=== PATIENT | male | born 1955 | race Caucasian/White ===

== ENCOUNTER → 2018-07-29 10:38 | Outpatient (CLI) | payer MEDICARE, SELFPAY ==
[2017-07-30 14:18] VITALS: BMI 31.6
[2018-07-29 12:03] LABS: AST(SGOT) 20 U/L (15-37); Alanine Aminotransfer ALT/SGPT 28 U/L (16-61); Albumin, Serum 3.4 g/dL (3.2-5.0); Alkaline Phosphatase 75 U/L (45-117); Bilirubin, Direct 0.21 mg/dL (0.00-0.30); Cholesterol 153 mg/dL (200); Globulin 3.7 g/dL (2.2-4.2); High Density Lipoprotein 39 mg/dL; Protein, Total 7.1 g/dL (6.4-8.2); Triglycerides 76 mg/dL; Very Low Density Lipoprotein 15 mg/dL (5-40)
== END ==
PROVIDERS: Family Provider Family Medicine; PCP Family Medicine; Referring Provider Internal Medicine Cardiovascular Disease; Visit Provider Internal Medicine Cardiovascular Disease
DX: E78.5 Hyperlipidemia, unspecified (principal)
CPT/HCPCS: 36415; 80061; 80076

== ENCOUNTER → 2018-08-15 06:45 | Outpatient (CLI) | payer MEDICARE, SELFPAY ==
[2018-07-31 14:33] VITALS: BMI 29.7
--- NOTE | 2018-08-15 10:19 | STRESSREP_ITS ---
Stress Test Report Date: 08/15/2018 Procedure: Pharmacologic stress nuclear imaging study Indications: Chest pain Consent: Per the patient Procedure: The patient underwent pharmacologic (regadenoson) evaluation with a peak heart rate of 105 beats per minute (67% predicted maximal heart rate) with a peak blood pressure 170/90 mmHg. The baseline ECG demonstrated normal sinus rhythm with of right bundle branch block pattern. The peak pharmacological ECG demonstrated no obvious ECG changes. There were no cardiac dysrhythmias pretest, during pharmacologic infusion, or recovery. There was no report of chest discomfort during pharmacologic infusion or recovery. The examination was discontinued secondary to completion of protocol. Impression: 1. Pharmacologic (regadenoson) evaluation 2. Peak pharmacologic ECG with no obvious ECG changes 3. Nuclear images pending Myocardial perfusion imaging study: Technique: The patient was injected with 11.4 mci of technetium-99m Cardiolite and subsequently rest SPECT Cardiolite nuclear imaging was obtained in the horizontal long, vertical long, and short axis views. The patient underwent pharmacologic (regadenoson (evaluation with a peak heart rate of 105 beats per minute (67% predicted maximal heart rate) with a peak blood pressure 170/90 mmHg. The patient was injected with 33.8 mci of technetium-99m Cardiolite and subsequently stress SPECT Cardiolite nuclear imaging was obtained in the horizontal long, vertical long, and short axis views. A gated Cardiolite study at peak stress was obtained. Interpretation: Rest and stress SPECT Cardiolite nuclear imaging status post realignment, normalization, and attenuation correction,Demonstrates the appearance at rest of extra cardiac/gastrointestinal tracer uptake which appears less prominent following stress. Both at rest and stress there is a small area of subtle diminished tracer uptake in portions of the distal inferior/inferoapical segm ents. Status post stress this appears to be somewhat more prominent in portions of the mid anterior segments. There is end systolic thickening and brightening.The gated Cardiolite study demonstrates myocardial thickening and word wall motion. The reported LVEF is 67%. Impression: 1. Rest and stress SPECT currently nuclear imaging demonstrate myocardial perfusion changes potentially compensable the effects of shifting soft tissue attenuation/artifact and or physiologic apical thinning, however, an area myocardial ischemia in portions of the mid anterior segments cannot necessarily be excluded. 2. The gated Cardiolite study reports an LVEF of 67%. This note was generated using a voice recognition system and there may be incorrect words, spelling or punctuation that were not noted when reviewing the office note prior to saving.
== END ==
PROVIDERS: Family Provider Family Medicine; PCP Family Medicine; Referring Provider Internal Medicine Cardiovascular Disease; Visit Provider Internal Medicine Cardiovascular Disease
DX: R07.9 Chest pain, unspecified (principal)
CPT/HCPCS: 78452; 93017; A9500; A4216; J2785

== ENCOUNTER 2018-09-10 07:59 | Day surgery (SDC) | payer MEDICARE, SELFPAY ==
[2018-07-31 14:33] VITALS: BMI 29.7
[2018-08-22 13:39] VITALS: BMI 29.7
--- NOTE | 2018-08-22 13:46 | RAD_ITS ---
STUDY: X-RAY CHEST REASON FOR EXAM: Male, 63 years old. Preop for heart catheterization TECHNIQUE: PA and lateral views of the chest. COMPARISON: None. FINDINGS: The lungs are clear and expanded. There is no demonstrated pleural abnormality. Normal size heart. Normal mediastinum and nguyễn. Normal visualized pulmonary arteries. Normal visualized aortic arch and descending thoracic aorta. Normal visualized thoracic spine. Normal visualized ribs, clavicles, and shoulders. There is no demonstrated abnormality of the visualized soft tissue structures of the upper abdomen. RAD/Chest PA and Lateral IMPRESSION: Normal x-ray examination of the chest. Electronically Signed: James Love MD at 12:21 EST , Service support ,
[2018-08-22 14:44] LABS: Hematocrit 43.2 % (40-54); Hemoglobin 14.7 g/dl (13.0-16.5); Mean Corpuscular Hgb 30.2 pg (27.0-32.0); Mean Corpuscular Volume 88.7 fL (80-94); Mean Platelet Vol. 9.5 fl (6.2-12.0); Platelet Count 171 K/mm3 (150-450); RBC Distribution Width CV 12.9 % (11.6-14.6); RBC Distribution Width SD 41.8 fl (35.1-43.9); Red Blood Count 4.87 M/mm3 (4.6-6.2); White Blood Count 7.1 K/mm3 (4.4-11.0)
[2018-08-22 14:47] LABS: Scan Indicated on CBC? Y/N NO
[2018-08-22 15:01] LABS: Prothrombin Time (Protime)PT. 13.4 SECONDS (11.7-14.9)
[2018-08-22 15:02] LABS: Partial Thromboplast Time 33.2 Seconds (24.1-36.2)
[2018-08-22 15:05] LABS: Anion Gap 9 (5-15); BUN 12 mg/dL (7-18); BUN/Creat Ratio 10.9 RATIO (10-20); Calcium,Total 8.9 mg/dL (8.5-10.1); Chloride 108 mmol/L (98-107); EST Glomerular Filtration Rate 72 mL/min (>60); Est Glom Filt Rate - Afr Amer 87 mL/min (>60); Glucose 112 mg/dL (74-106); Potassium 3.9 mmol/L (3.5-5.1); Sodium Level 143 mmol/L (136-145)
[2018-09-09 07:46] VITALS: BMI 29.7
--- NOTE | 2018-09-10 08:25 | PCM.HP.BLA ---
History and Physical Date of Admission: 09/10/18 HPI HPI Details: ALEX PENA, is a 63 M who presents to the cardiac catheterization lab today for a cardiovascular outpatient follow-up. He has a history of syncope, right bundle branch block, hypertension, and hyperlipidemia. During his office visit on 07/31/2018 patient expressed vague chest pain. He underwent a nuclear stress test on 08/15/2018 which showed peak ECG with no obvious ECG changes and nuclear images showing that an area of myocardial ischemia in portions of the mid anterior segments could not necessarily be excluded with an ejection fraction of 67%. Because of this, he will undergo a left heart catheterization for further evaluation. He continues to have vague chest pain. Pt denies arm, jaw, or neck discomfort. His exercise tolerance is stable. Pt denies symptoms of palpitations, lightheadedness, dizziness, near syncopal or syncopal episodes. Pt denies edema or claudication issues. Pt. denies orthopnea, PND, fever, chills, blood in urine, blood in stool, myalgia, or unexplainable fatigue. He states intermittent episodes of shortness of breath. Intake Intake Visit Reasons: Amb Documentation Allergies clonidine Allergy (Intermediate, Verified 09/09/18 07:49) Hives latex Allergy (Intermediate, Verified 09/09/18 07:49) Hives neomycin [From Neosporin ([id number])] Allergy (Intermediate, Verified 09/09/18 07:49) Hives polymyxin B [From Neosporin ([id number])] Allergy (Intermediate, Verified 09/09/18 07:49) Hives carvedilol [From Coreg] Adverse Reaction (Severe, Verified 09/09/18 07:49) Suicidal Ideation lisinopril Adverse Reaction (Severe, Verified 09/09/18 07:49) dizziness,syncope,visual disturbance losartan Adverse Reaction (Severe, Verified 09/09/18 07:49) Visual Disturbances bacitracin Adverse Reaction (Intermediate, Verified 09/09/18 07:49) hives barium iodide Adverse Reaction (Intermediate, Verified 09/09/18 07:49) Vomiting hydrochlorothiazide Adverse Reaction (Verified 09/09/18 07:49) Unknown metoprolol succinate Adverse Reaction (Severe, Uncoded 09/09/18 07:49) dizziness/passed out Medications omeprazole 40 mg capsule,delayed release 40 mg PO QDAY 07/26/17 [History Confirmed 09/09/18] vitamin A palmitate 10,000 unit tablet 10,000 unit PO QDAY 07/26/17 [History Confirmed 09/09/18] antiarthritic combination no.2 900 mg tablet 900 mg PO DAILY tab 07/31/18 [History Confirmed 09/09/18] aspirin 81 mg tablet,delayed release 81 mg PO DAILY 08/16/18 [History Confirmed 09/09/18] amlodipine 5 mg tablet 5 mg PO QDAY #90 tab 08/22/18 [Rx Confirmed 09/09/18] atenolol 25 mg tablet 25 mg PO DAILY #90 tab 08/22/18 [Rx Confirmed 09/09/18] clopidogrel 75 mg tablet 75 mg PO DAILY #30 tab 08/22/18 [Rx Confirmed 09/09/18] diphenhydramine 25 mg capsule 50 mg PO .COMPLEX #4 cap 08/22/18 [Rx Confirmed 09/09/18] prednisone 20 mg tablet 60 mg PO .COMPLEX #9 tab 08/22/18 [Rx Confirmed 09/09/18] ranitidine 150 mg tablet 150 mg PO .COMPLEX #2 tab 08/22/18 [Rx Confirmed 09/09/18] Vital Signs: Please refer to separate documentation in the EMR for vital signs. PFSH Medical History Essential hypertension (Chronic) Cardiomyopathy in diseases classified elsewhere (Chronic) Chest discomfort (Acute) Hyperlipidemia (Chronic) Family history of stroke (Chronic) GERD (gastroesophageal reflux disease) (Chronic) Legally blind (Chronic) Retinitis pigmentosa (Chronic) Hypertension (Inactive) Surgical History History of appendectomy (Resolved) Family History Mother CAD (coronary artery disease) Heart disease CVA (cerebral vascular accident) Hypertension Father Hypertension Brother CVA (cerebral vascular accident) Sister Myocardial infarction CAD (coronary artery disease) Hypertension Daughter Diabetes Social History Smoking Status: Never smoker ROS Const Const: Negative for fatigue, weakness, weight gain, weight loss, frequent falls or excessive sweating Eyes Eyes: Negative for change in vision, blurry vision or transient loss of vision ENT ENT: Negative for dizziness or balance problems Cardio Chest Pain: Yes Character: dull Onset: at rest, exercise Location: mid sternal Duration: brief Palpitations: No Edema: Bilateral (occasional) Muscle aches with walking: None Additional Details: Patient reports that he continues with a dull intermittent CP; Just enough to let u know it is there. Patient reports that at times it feels the same as previously reported. Resp Respiratory: Positive for SOB with activity; negative for SOB at rest, SOB orthopnea\SOB lying down or paroxysmal nocturnal dyspnea GI GI: Negative vomiting or vomiting blood/hematemesis : Negative for hematuria Musc Musc: Negative for balance problems or muscle aches/ myalgia Skin Skin: Negative non-healing lesions or rash Neuro Neuro: Negative for weakness, frequent falls, blurry vision, dizziness, lightheadedness, near syncope or syncope Iraj Hematologic/Lymphatic: Negative for easy bleeding Endo Endo: Negative for fatigue or excessive sweating Psych Psych: Negative for anxiety or depression Allergy Allergy/Immunology: Negative for rash Cardiology Exam Const Appearance: cooperative, well developed, healthy appearing, comfortable and no acute distress Nutritional Appearance: average body habitus and obese Orientation: alert, awake and oriented x3 Head Head: normal to inspection Ears: hearing grossly normal bilaterally Nose: external nose normal Face and Sinus: face symmetric Mouth: oral mucosae normal Teeth and gingiva: poor dentition and fair dentition Eyes Eyelids: eyelids normal Pupils: PERRL EOM: EOM intact bilaterally Neck Neck: normal visual inspection and full ROM Carotids: normal carotid upstroke Chest Chest inspection: normal inspection of the chest, symmetric chest movement and normal respiratory effort Auscultation: Bilateral: Clear to Auscultation Cardio Palpation: normal PMI Rate: regular rate Rhythm: regular rhythm Heart sounds: S1 normal and S2 normal GI GI: obese and normal to inspection Neuro General: alert, awake, oriented x3 and moves all extremities Skin Skin: no rashes or lesions noted Extremities Pulses: Normal: Right Posterior Tibial Pulse, Left Posterior Tibial Pulse, Right Radial Pulse, Left Radial Pulse Lower Extremity Edema: None: Bilateral Psych Psychological: normal affect Assessment & Plan 1. Chest discomfort R07.89 Plan He states having continual off and on chest pain. He states his last episode yesterday lasted for about 10 minutes and occurred at rest. His heart catheterization will help discern if cardiac in etiology. 2. Abnormal stress test R94.39 Plan Patient stress test from July 2018 was considered to be abnormal. He will undergo a left heart catheterization for further evaluation and recommendation. 3. Syncope and collapse R55 Plan He denies any recurrent episodes. His heart rate and blood pressure remains well controlled. He will continue the current medications and we will continue to monitor. 4. Essential (primary) hypertension I10 Plan Patient's blood pressure is well-controlled. We will continue to monitor this. We will not make any medication regimen changes. 5. Hyperlipidemia, unspecified hyperlipidemia type E78.5 Plan Lipid panel from July 2018 showed cholesterol: 153, HDL: 39, LDL: 99, triglycerides: 76. He is not on any cholesterol lowering medication. Depending on his overall course regarding his left heart catheterization this may be considered. Plan Detail Additional Comments Thank you for allowing us to participate in the patients plan of care, if you have any questions please do not hesitate to call. This note was generated using a voice recognition system and there may be incorrect words, spelling or punctuation that were not noted when reviewing the office note prior to saving. Coding Diagnoses Chest discomfort R07.89 Abnormal stress test R94.39 Syncope and collapse R55 Essential (primary) hypertension I10 Hyperlipidemia, unspecified hyperlipidemia type E78.5 Hyperlipidemia type: unspecified Coding Diagnoses Chest discomfort R07.89 Abnormal stress test R94.39 Syncope and collapse R55 Essential (primary) hypertension I10 Hyperlipidemia, unspecified hyperlipidemia type E78.5 Hyperlipidemia type: unspecified Supplemental Info Supplemental Information Nuclear stress test 07/21/2018: Impression: 1. Pharmacologic (regadenoson) evaluation 2. Peak pharmacologic ECG with no obvious ECG changes 3. Nuclear images pending Myocardial perfusion imaging study: Technique: The patient was injected with 11.4 mci of technetium-99m Cardiolite and subsequently rest SPECT Cardiolite nuclear imaging was obtained in the horizontal long, vertical long, and short axis views. The patient underwent pharmacologic (regadenoson (evaluation with a peak heart rate of 105 beats per minute (67% predicted maximal heart rate) with a peak blood pressure 170/90 mmHg. The patient was injected with 33.8 mci of technetium-99m Cardiolite and subsequently stress SPECT Cardiolite nuclear imaging was obtained in the horizontal long, vertical long, and short axis views. A gated Cardiolite study at peak stress was obtained. Interpretation: Rest and stress SPECT Cardiolite nuclear imaging status post realignment, normalization, and attenuation correction,Demonstrates the appearance at rest of extra cardiac/gastrointestinal tracer uptake which appears less prominent following stress. Both at rest and stress there is a small area of subtle diminished tracer uptake in portions of the distal inferior/inferoapical segments. Status post stress this appears to be somewhat more prominent in portions of the mid anterior segments. There is end systolic thickening and brightening.The gated Cardiolite study demonstrates myocardial thickening and word wall motion. The reported LVEF is 67%. Impression: 1. Rest and stress SPECT currently nuclear imaging demonstrate myocardial perfusion changes potentially compensable the effects of shifting soft tissue attenuation/artifact and or physiologic apical thinning, however, an area myocardial ischemia in portions of the mid anterior segments cannot necessarily be excluded. 2. The gated Cardiolite study reports an LVEF of 67%. Holter monitor from July 2017: Normal sinus rhythm with bundle branch block, average heart rate of 65 beat bpm, minimum heart rate of 35 bpm of sinus bradycardia, maximum heart rate 114 bpm and sinus rhythm, rare PVCs, no runs noted, rare PACs, no atrial fibrillation noted, and longest R to R interval of 2 seconds. Echocardiogram from 07/25/2012: Ventricular systolic function is normal estimate ejection fraction is 55% trivial mitral valve insufficiency trivial tricuspid valve insufficiency trivial pulmonic valve insufficiency transmitral Doppler flow suggestive of impaired relaxation of left ventricle. Labs LDL Cholesterol 99 mg/dL (0-130) 07/29/18 HDL Cholesterol 39 mg/dL (40-) L 07/29/18 Triglycerides 76 mg/dL (-199) 07/29/18 VLDL Cholesterol 15 mg/dL (5-40) 07/29/18 Diagnostics Electrocardiogram 07/31/18 Stress Test Nuclear Medicine 08/15/18 Stress Test 08/15/18 Chest X-Ray 08/22/18
--- NOTE | 2018-09-10 10:06 | CL.D_ITS ---
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 The risks and benefits of the procedure as well as a full d escription of our services here and current unavailability of surgical backup were fully explained to the patient and/or their significant other prior to the catheterization. The Timeout was completed, verifying the correct patient and procedure. The patient's procedural site was prepped and draped in the usual fashion. Local anesthetic was given subcutaneously to right groin region with Lidocaine 2%. Using a modified Seldinger technique, arterial access was obtained via the right femoral artery, a 4 Fr sheath was inserted Left Coronary Artery selective angiography was performed in multiple views us ing a 4 Fr. JL5 catheter. Right Coronary Artery selective angiography was then performed in multiple views using a 4 Fr. 3DRC catheter. Left Ventriculography was performed in KERNS projection using a 4 Fr . Pigtail catheter. LV to AO pullback pressures were then recorded.The arterial sheath was pulled and manual compression applied until hemostasis is achieved. CORONARY ANGIOGRAPHY DOMINANCE: Right Dominant LEFT HEART ASSESSMENT Left Ventricular Ejection Fraction: by LV Gram 65 % Normal LV wall motion Elevated Left Ventricular End Diastolic Pressure LVEDP: 16 mmHg LEFT MAIN: Angiographically normal LEFT ANTERIOR DECENDING ARTERY: Angiographically normal CIRCUMFLEX ARTERY: PROX CIRC: Mild luminal irregularities RIGHT CORONARY ARTERY: PROX RCA: Mild luminal irregularities VALVE FINDINGS: Normal Aortic Valve function Normal Mitral Valve function AORTIC ROOT: Angiographically normal COMPLICATIONS No Complications PROCEDURE MEDICATIONS Versed 1 mg IV Oxygen: 2 L/min via nasal cannula Solu-medrol 125 mg IV 09/10/2018 09:26:44 SUMMARY OF HEMODYNAMIC DATA Time AIR REST ECG 08:22:03 AO 130/80 (103) SA 09:39:46 LV 130/-6, 16 09:46:38 LV 133/-8, 13 09:46:44 LV 127/-3, 17 09:47:31 LVp 128/-7, 14 09:47:37 AOp 127/69 (94) 09:47:42 10:04:02 Signed By Eamon Ponce MD On 09/10/2018 10:06:25 Eamon Ponce MD
--- OUTSIDE RECORDS SUMMARY | 2018-11-12 08:03 | XMS RPT_ITS ---
:1955 Author Organization OHIP Care Team Providers Name Role Phone Eamon Ponce Attending Unavailable Tiff Garrett Referring Unavailable Eamon Ponce Attending Unavailable Eamon Ponce Referring Unavailable Tami, Tiff Primary Care Unavailable Eamon Ponce Attending Unavailable Tami Tiff Referring Unavailable Eamon Ponce Attending Unavailable Eamon Ponce Referring Unavailable Tami, Tiff Primary Care Unavailable Eamon Ponce Attending Unavailable Eamon Ponce Referring Unavailable Sushant Spence Attending Unavailable Eamon Ponce Attending Unavailable Eamon Ponce Referring Unavailable Tami, Tiff Primary Care Unavailable Sushant Spence Attending Unavailable [place], Eamon Referring Unavailable Tiff Garrett Primary Care Unavailable Eamon Ponce Consulting Unavailable PROBLEMS PROBLEMS DATE TYPE CONDITION / CODE ATTENDING STATUS SOURCE 09/10/2018 Unknown R07.89 - Other chest Eamon Ponce Active [place] pain / Community R07.89(ICD-10) Hospital Repository 09/10/2018 Unknown R94.39 - Abnormal Eamon Ponce Active [place] result of other [facility] cardiovascular Hospital function study / Repository R94.39(ICD-10) 09/03/2018 Unknown R07.9 - Chest pain, Eamon Ponce Active [place] unspecified / Community R07.9(ICD-10) Hospital Repository 07/31/2018 Unknown I10 - Essential Eamon Ponce Active [place] (primary) Community hypertension / Hospital I10(ICD-10) Repository 07/31/2018 Unknown I43 - Cardiomyopathy Eamon Ponce Active [place] in diseases Community classified elsewhere Hospital / I43(ICD-10) Repository PROCEDURES PROCEDURES No Procedure Records FoundRESULTS RESULTS CBC-COMPLETE BLOOD CNT Collected: 09/10/2018 Status: F Source: [place] NO DIFF 9:30 AM [facility] [place] CODE TESTS RESULT OUT OF RANGE REFERENCE UNITS LAB L100.1000 4.4-11.0 K/mm3 Normal WBC 7.1 LAB L100.1200 4.6-6.2 M/mm3 Normal RBC 4.87 LAB L100.1300 13.0-16.5 g/dl Normal HGB 14.7 LAB L100.1400 40-54 % Normal HCT 43.2 LAB L100.1500 80-94 fL Normal MCV 88.7 LAB L100.1600 27.0-32.0 pg Normal MCH 30.2 LAB L100.1700 32-36 g/gl Normal MCHC 34.0 LAB L100.1810 11.6-14.6 % Normal RDW CV 12.9 LAB L100.1820 35.1-43.9 fl Normal RDW SD 41.8 LAB L100.1900 150-450 K/mm3 Normal PLT 171 LAB L100.2000 6.2-12.0 fl Normal MPV 9.5 Performed By: #### L100.0500 #### [facility] [address] [place], [address] BASIC METABOLIC Collected: 09/10/2018 Status: F Source: [place] PROFILE (BMP) 9:30 AM [facility] [place] CODE TESTS RESULT OUT OF RANGE REFERENCE UNITS LAB L501.0100 74-106 mg/dL High GLU 112 Result Comment: Fasting Glucose result from 100 to 125 mg/dL suggests IMPAIRED HOMEOSTASIS per A.D.A. criteria. Please note revised GLUCOSE reference range effective 2017. LAB L501.1000 7-18 mg/dL Normal BUN 12 LAB L501.1100 0.70-1.30 mg/dL Normal CREAT,SERUM 1.10 Result Comment: The validity of the calculated GFR AND GFRAA in patients over 70 years has not been determined. Clinical correlation is essential. LAB L501.1110 >60 mL/min Normal EST GFR 72 Result Comment: Non- GFR Calc LAB L501.1115 >60 mL/min Normal EST GFR - AA 87 Result Comment: GFR Calc LAB L501.1300 10-20 RATIO Normal BUN/CRE 10.9 LAB L501.2200 8.5-10.1 mg/dL CA Normal 8.9 LAB L501.5300 136-145 mmol/L NA Normal 143 LAB L501.5600 3.5-5.1 mmol/L K Normal 3.9 LAB L501.5900 98-107 mmol/L High CL 108 LAB L501.6100 21.0-32.0 mmol/L Normal CO2 26.0 LAB L501.6200 5-15 Normal GAP 9 Performed By: #### L500.2500 #### [facility] [address] [place], [address] PROTHROMBIN TIME W/INR Collected: 09/10/2018 Status: F Source: [place] 9:30 AM [facility] [place] CODE TESTS RESULT OUT OF RANGE REFERENCE UNITS LAB L300.4150 11.7-14.9 SECONDS Normal PROTIME 13.4 LAB L300.4200 Normal INR 1.0 Performed By: #### L300.3900, L300.4310 #### [facility] [address] [place], [address] PARTIAL THROMBOPLAST Collected: 09/10/2018 Status: F Source: [place] TIME 9:30 AM [facility] [place] CODE TESTS RESULT OUT OF RANGE REFERENCE UNITS LAB L300.4310 24.1-36.2 Seconds Normal PTT 33.2 Performed By: #### L300.3900, L300.4310 #### [facility] [address] [place], [address] HISTORY AND PHYSICAL Observed: 09/10/2018 Status: F Source: [place] EXAM 8:27 AM [facility] [place] [facility] Medical Records Department [address] [place] [address] History and Physical 09/10/18 0825 MR#: [id number] Acct: [id number] Name: ALEX PENA Rep #: [id number] : 1955 63 From: Sushant Spence [employer] PCP: Tiff Garrett MD Status: [facility] Y Location: [facility] History and Physical Date of Admission: 09/10/18 HPI HPI Details: ALEX PENA, is a 63 M who presents to the cardiac catheterization lab today for a cardiovascular outpatient follow-up. He has a history of syncope, right bundle branch block, hypertension, and hyperlipidemia. During his office visit on 07/31/2018 patient expressed vague chest pain. He underwent a nuclear stress test on 08/15/2018 which showed peak ECG with no obvious ECG changes and nuclear images showing that an area of myocardial ischemia in portions of the mid anterior segments could not necessarily be excluded with an ejection fraction of 67%. Because of this, he will undergo a left heart catheterization for further evaluation. He continues to have vague chest pain. Pt denies arm, jaw, or neck discomfort. His exercise tolerance is stable. Pt denies symptoms of palpitations, lightheadedness, dizziness, near syncopal or syncopal episodes. Pt denies edema or claudication issues. Pt. denies orthopnea, PND, fever, chills, blood in urine, blood in stool, myalgia, or unexplainable fatigue. He states intermittent episodes of shortness of breath. Intake Intake Visit Reasons: Amb Documentation Allergies clonidine Allergy (Intermediate, Verified 09/09/18 07:49) Hives latex Allergy (Intermediate, Verified 09/09/18 07:49) Hives neomycin [From Neosporin ([id number])] Allergy (Intermediate, Verified 09/09/18 07:49) Hives polymyxin B [From Neosporin ([id number])] Allergy (Intermediate, Verified 09/09/18 07:49) Hives carvedilol [From Coreg] Adverse Reaction (Severe, Verified 09/09/18 07:49) Suicidal Ideation lisinopril Adverse Reaction (Severe, Verified 09/09/18 07:49) dizziness,syncope,visual disturbance losartan Adverse Reaction (Severe, Verified 09/09/18 07:49) Visual Disturbances bacitracin Adverse Reaction (Intermediate, Verified 09/09/18 07:49) hives barium iodide Adverse Reaction (Intermediate, Verified 09/09/18 07:49) Vomiting hydrochlorothiazide Adverse Reaction (Verified 09/09/18 07:49) Unknown metoprolol succinate Adverse Reaction (Severe, Uncoded 09/09/18 07:49) dizziness/passed out Medications omeprazole 40 mg capsule,delayed release 40 mg PO QDAY 07/26/17 [History Confirmed 09/09/18] vitamin A palmitate 10,000 unit tablet 10,000 unit PO QDAY 07/26/17 [History Confirmed 09/09/18] antiarthritic combination no.2 900 mg tablet 900 mg PO DAILY tab 07/31/18 [History Confirmed 09/09/18] aspirin 81 mg tablet,delayed release 81 mg PO DAILY 08/16/18 [History Confirmed 09/09/18] amlodipine 5 mg tablet 5 mg PO QDAY #90 tab 08/22/18 [Rx Confirmed 09/09/18] atenolol 25 mg tablet 25 mg PO DAILY #90 tab 08/22/18 [Rx Confirmed 09/09/18] clopidogrel 75 mg tablet 75 mg PO DAILY #30 tab 08/22/18 [Rx Confirmed 09/09/18] diphenhydramine 25 mg capsule 50 mg PO .COMPLEX #4 cap 08/22/18 [Rx Confirmed 09/09/18] prednisone 20 mg tablet 60 mg PO .COMPLEX #9 tab 08/22/18 [Rx Confirmed 09/09/18] ranitidine 150 mg tablet 150 mg PO .COMPLEX #2 tab 08/22/18 [Rx Confirmed 09/09/18] Vital Signs: Please refer to separate documentation in the EMR for vital signs. PFSH Medical History Essential hypertension (Chronic) Cardiomyopathy in diseases classified elsewhere (Chronic) Chest discomfort (Acute) Hyperlipidemia (Chronic) Family history of stroke (Chronic) GERD (gastroesophageal reflux disease) (Chronic) Legally blind (Chronic) Retinitis pigmentosa (Chronic) Hypertension (Inactive) Surgical History History of appendectomy (Resolved) Family History Mother CAD (coronary artery disease) Heart disease CVA (cerebral vascular accident) Hypertension Father Hypertension Brother CVA (cerebral vascular accident) Sister Myocardial infarction CAD (coronary artery disease) Hypertension Daughter Diabetes Social History Smoking Status: Never smoker ROS Const Const: Negative for fatigue, weakness, weight gain, weight loss, frequent falls or excessive sweating Eyes Eyes: Negative for change in vision, blurry vision or transient loss of vision ENT ENT: Negative for dizziness or balance problems Cardio Chest Pain: Yes Character: dull Onset: at rest, exercise Location: mid sternal Duration: brief Palpitations: No Edema: Bilateral (occasional) Muscle aches with walking: None Additional Details: Patient reports that he continues with a dull intermittent CP; Just enough to let u know it is there. Patient reports that at times it feels the same as previously reported. Resp Respiratory: Positive for SOB with activity; negative for SOB at rest, SOB orthopnea\SOB lying down or paroxysmal nocturnal dyspnea GI GI: Negative vomiting or vomiting blood/hematemesis : Negative for hematuria Musc Musc: Negative for balance problems or muscle aches/ myalgia Skin Skin: Negative non-healing lesions or rash Neuro Neuro: Negative for weakness, frequent falls, blurry vision, dizziness, lightheadedness, near syncope or syncope Iraj Hematologic/Lymphatic: Negative for easy bleeding Endo Endo: Negative for fatigue or excessive sweating Psych Psych: Negative for anxiety or depression Allergy Allergy/Immunology: Negative for rash Cardiology Exam Const Appearance: cooperative, well developed, healthy appearing, comfortable and no acute distress Nutritional Appearance: average body habitus and obese Orientation: alert, awake and oriented x3 Head Head: normal to inspection Ears: hearing grossly normal bilaterally Nose: external nose normal Face and Sinus: face symmetric Mouth: oral mucosae normal Teeth and gingiva: poor dentition and fair dentition Eyes Eyelids: eyelids normal Pupils: PERRL EOM: EOM intact bilaterally Neck Neck: normal visual inspection and full ROM Carotids: normal carotid upstroke Chest Chest inspection: normal inspection of the chest, symmetric chest movement and normal respiratory effort Auscultation: Bilateral: Clear to Auscultation Cardio Palpation: normal PMI Rate: regular rate Rhythm: regular rhythm Heart sounds: S1 normal and S2 normal GI GI: obese and normal to inspection Neuro General: alert, awake, oriented x3 and moves all extremities Skin Skin: no rashes or lesions noted Extremities Pulses: Normal: Right Posterior Tibial Pulse, Left Posterior Tibial Pulse, Right Radial Pulse, Left Radial Pulse Lower Extremity Edema: None: Bilateral Psych Psychological: normal affect Assessment AND Plan 1. Chest discomfort R07.89 Plan He states having continual off and on chest pain. He states his last episode yesterday lasted for about 10 minutes and occurred at rest. His heart catheterization will help discern if cardiac in etiology. 2. Abnormal stress test R94.39 Plan Patient stress test from July 2018 was considered to be abnormal. He will undergo a left heart catheterization for further evaluation and recommendation. 3. Syncope and collapse R55 Plan He denies any recurrent episodes. His heart rate and blood pressure remains well controlled. He will continue the current medications and we will continue to monitor. 4. Essential (primary) hypertension I10 Plan Patient's blood pressure is well-controlled. We will continue to monitor this. We will not make any medication regimen changes. 5. Hyperlipidemia, unspecified hyperlipidemia type E78.5 Plan Lipid panel from July 2018 showed cholesterol: 153, HDL: 39, LDL: 99, triglycerides: 76. He is not on any cholesterol lowering medication. Depending on his overall course regarding his left heart catheterization this may be considered. Plan Detail Additional Comments Thank you for allowing us to participate in the patients plan of care, if you have any questions please do not hesitate to call. This note was generated using a voice recognition system and there may be incorrect words, spelling or punctuation that were not noted when reviewing the office note prior to saving. Coding Diagnoses Chest discomfort R07.89 Abnormal stress test R94.39 Syncope and collapse R55 Essential (primary) hypertension I10 Hyperlipidemia, unspecified hyperlipidemia type E78.5 Hyperlipidemia type: unspecified Coding Diagnoses Chest discomfort R07.89 Abnormal stress test R94.39 Syncope and collapse R55 Essential (primary) hypertension I10 Hyperlipidemia, unspecified hyperlipidemia type E78.5 Hyperlipidemia type: unspecified Supplemental Info Supplemental Information Nuclear stress test 07/21/2018: Impression: 1. Pharmacologic (regadenoson) evaluation 2. Peak pharmacologic ECG with no obvious ECG changes 3. Nuclear images pending Myocardial perfusion imaging study: Technique: The patient was injected with 11.4 mci of technetium-99m Cardiolite and subsequently rest SPECT Cardiolite nuclear imaging was obtained in the horizontal long, vertical long, and short axis views. The patient underwent pharmacologic (regadenoson (evaluation with a peak heart rate of 105 beats per minute (67% predicted maximal heart rate) with a peak blood pressure 170/90 mmHg. The patient was injected with 33.8 mci of technetium-99m Cardiolite and subsequently stress SPECT Cardiolite nuclear imaging was obtained in the horizontal long, vertical long, and short axis views. A gated Cardiolite study at peak stress was obtained. Interpretation: Rest and stress SPECT Cardiolite nuclear imaging status post realignment, normalization, and attenuation correction,Demonstrates the appearance at rest of extra cardiac/gastrointestinal tracer uptake which appears less prominent following stress. Both at rest and stress there is a small area of subtle diminished tracer uptake in portions of the distal inferior/inferoapical segments. Status post stress this appears to be somewhat more prominent in portions of the mid anterior segments. There is end systolic thickening and brightening.The gated Cardiolite study demonstrates myocardial thickening and word wall motion. The reported LVEF is 67%. Impression: 1. Rest and stress SPECT currently nuclear imaging demonstrate myocardial perfusion changes potentially compensable the effects of shifting soft tissue attenuation/artifact and or physiologic apical thinning, however, an area myocardial ischemia in portions of the mid anterior segments cannot necessarily be excluded. 2. The gated Cardiolite study reports an LVEF of 67%. Holter monitor from July 2017: Normal sinus rhythm with bundle branch block, average heart rate of 65 beat bpm, minimum heart rate of 35 bpm of sinus bradycardia, maximum heart rate 114 bpm and sinus rhythm, rare PVCs, no runs noted, rare PACs, no atrial fibrillation noted, and longest R to R interval of 2 seconds. Echocardiogram from 07/25/2012: Ventricular systolic function is normal estimate ejection fraction is 55% trivial mitral valve insufficiency trivial tricuspid valve insufficiency trivial pulmonic valve insufficiency transmitral Doppler flow suggestive of impaired relaxation of left ventricle. Labs LDL Cholesterol 99 mg/dL (0-130) 07/29/18 HDL Cholesterol 39 mg/dL (40-) L 07/29/18 Triglycerides 76 mg/dL (-199) 07/29/18 VLDL Cholesterol 15 mg/dL (5-40) 07/29/18 Diagnostics Electrocardiogram 07/31/18 Stress Test Nuclear Medicine 08/15/18 Stress Test 08/15/18 Chest X-Ray 08/22/18 09/10/18 0827 <Electronically signed by Sushant OLIVEIRA> Date Sushant OLIVEIRA Cosigner Signature: Date (if applicable) CC: ALONSO Spence; Tiff Garrett MD Signed OFFICE VISIT REPORT Observed: 08/22/2018 Status: F Source: [place] 8:[address] [place] [address] OFFICE VISIT Date of Service: 08/22/18 MR#: [id number] Acct: [id number] Patient: ALEX PENA Rep #: [id number] : 1955 Provider: Eamon Ponce MD Age/Sex: 63/M [place] [facility] [place]: Signed Intake Vital Signs08/22/18 Body Mass Index (BMI) 29.7 Intake Visit Reasons: cath teaching Allergies clonidine Allergy (Intermediate, Verified 07/31/18 14:33) Hives latex Allergy (Intermediate, Verified 07/31/18 14:33) Hives neomycin [From Neosporin ([id number])] Allergy (Intermediate, Verified 07/31/18 14:33) Hives polymyxin B [From Neosporin ([id number])] Allergy (Intermediate, Verified 07/31/18 14:33) Hives carvedilol [From Coreg] Adverse Reaction (Severe, Verified 07/31/18 14:33) Suicidal Ideation lisinopril Adverse Reaction (Severe, Verified 07/31/18 14:33) dizziness,syncope,visual disturbance losartan Adverse Reaction (Severe, Verified 07/31/18 14:33) Visual Disturbances bacitracin Adverse Reaction (Intermediate, Verified 07/31/18 14:33) hives barium iodide Adverse Reaction (Intermediate, Verified 07/31/18 14:33) Vomiting metoprolol succinate Adverse Reaction (Severe, Uncoded 07/31/18 14:33) dizziness/passed out Hydrochlorathiazide Adverse Reaction (Mild, Uncoded 07/31/18 14:33) Dry Throat Medications omeprazole 40 mg capsule,delayed release 40 mg PO QDAY 07/26/17 [History Confirmed 07/31/18] vitamin A palmitate 10,000 unit tablet 10,000 unit PO QDAY 07/26/17 [History Confirmed 07/31/18] antiarthritic combination no.2 900 mg tablet 900 mg PO DAILY tab 07/31/18 [History Confirmed 07/31/18] aspirin 81 mg tablet,delayed release 81 mg PO DAILY 08/16/18 [History Confirmed 08/16/18] amlodipine 5 mg tablet 5 mg PO QDAY #90 tab 08/22/18 [Rx Confirmed 08/22/18] atenolol 25 mg tablet 25 mg PO DAILY #90 tab 08/22/18 [Rx Confirmed 08/22/18] clopidogrel 75 mg tablet 75 mg PO DAILY #30 tab 08/22/18 [Rx] diphenhydramine 25 mg capsule 50 mg PO .COMPLEX #4 cap 08/22/18 [Rx] prednisone 20 mg tablet 60 mg PO .COMPLEX #9 tab 08/22/18 [Rx] ranitidine 150 mg tablet 150 mg PO .COMPLEX #2 tab 08/22/18 [Rx] Assessment AND Plan Medications New: Refilled: Discontinued: Nursing Note Patient in for cardiac cath teaching. Cath video viewed with questions answered. Reviewed cath booklet with verbal instruction given. Scripts sent to patient pharmacy. 08/22/181999 <Electronically signed by Eamon Ponce MD> Date Eamon Ponce MD Cosigner Signature: Date (if applicable) CC: Alexandra Weber CHEST PA AND LATERAL Observed: 08/22/2018 Status: F Source: [place] 1:43 PM [facility] HOSPITAL REPOSITORY [facility] Imaging Services [address] [place] [address] Chest PA and Lateral MR#: [id number] Acct: [id number] Name: ALEX PENA Rep #: [id number] : 1955 M 63 From: Pastor Love MD PCP: Tiff Garrett MD [place] [facility] [place] Chest PA and Lateral Date of Exam: 08/22/18 Exam# [id number] Ordering Dr: Eamon Ponce MD STUDY: X-RAY CHEST REASON FOR EXAM: Male, 63 years old. Preop for heart catheterization TECHNIQUE: PA and lateral views of the chest. COMPARISON: None. FINDINGS: The lungs are clear and expanded. There is no demonstrated pleural abnormality. Normal size heart. Normal mediastinum and nguyễn. Normal visualized pulmonary arteries. Normal visualized aortic arch and descending thoracic aorta. Normal visualized thoracic spine. Normal visualized ribs, clavicles, and shoulders. There is no demonstrated abnormality of the visualized soft tissue structures of the upper abdomen. RAD/Chest PA and Lateral IMPRESSION: Normal x-ray examination of the chest. Electronically Signed: James Love MD at 12:21 EST , Service support , CC: Tiff Garrett MD; Eamon Ponce MD Proof Inspector: Signed STRESS REPORT Observed: 08/15/2018 Status: F Source: [place] 10:20 AM [facility] H[facility] REPOSITORY [facility] Cardiovascular Services [address] [place] [address] MR#: [id number] Acct: [id number] Name: ALEX PENA Rep #: [id number] : 1955 63 From: Eamon Ponce MD Primary Care: Tiff Garrett MD Status: REG CLI Ordering Dr: Anamika: Gibran Longoria Stress Test Report Date: 08/15/2018 Procedure: Pharmacologic stress nuclear imaging study Indications: Chest pain Consent: Per the patient Procedure: The patient underwent pharmacologic (regadenoson) evaluation with a peak heart rate of 105 beats per minute (67% predicted maximal heart rate) with a peak blood pressure 170/90 mmHg. The baseline ECG demonstrated normal sinus rhythm with of right bundle branch block pattern. The peak pharmacological ECG demonstrated no obvious ECG changes. There were no cardiac dysrhythmias pretest, during pharmacologic infusion, or recovery. There was no report of chest discomfort during pharmacologic infusion or recovery. The examination was discontinued secondary to completion of protocol. Impression: 1. Pharmacologic (regadenoson) evaluation 2. Peak pharmacologic ECG with no obvious ECG changes 3. Nuclear images pending Myocardial perfusion imaging study: Technique: The patient was injected with 11.4 mci of technetium-99m Cardiolite and subsequently rest SPECT Cardiolite nuclear imaging was obtained in the horizontal long, vertical long, and short axis views. The patient underwent pharmacologic (regadenoson (evaluation with a peak heart rate of 105 beats per minute (67% predicted maximal heart rate) with a peak blood pressure 170/90 mmHg. The patient was injected with 33.8 mci of technetium-99m Cardiolite and subsequently stress SPECT Cardiolite nuclear imaging was obtained in the horizontal long, vertical long, and short axis views. A gated Cardiolite study at peak stress was obtained. Interpretation: Rest and stress SPECT Cardiolite nuclear imaging status post realignment, normalization, and attenuation correction,Demonstrates the appearance at rest of extra cardiac/gastrointestinal tracer uptake which appears less prominent following stress. Both at rest and stress there is a small area of subtle diminished tracer uptake in portions of the distal inferior/inferoapical segments. Status post stress this appears to be somewhat more prominent in portions of the mid anterior segments. There is end systolic thickening and brightening.The gated Cardiolite study demonstrates myocardial thickening and word wall motion. The reported LVEF is 67%. Impression: 1. Rest and stress SPECT currently nuclear imaging demonstrate myocardial perfusion changes potentially compensable the effects of shifting soft tissue attenuation/artifact and or physiologic apical thinning, however, an area myocardial ischemia in portions of the mid anterior segments cannot necessarily be excluded. 2. The gated Cardiolite study reports an LVEF of 67%. This note was generated using a voice recognition system and there may be incorrect words, spelling or punctuation that were not noted when reviewing the office note prior to saving. 08/15/18 1020 <Electronically signed by Eamon Ponce MD> Date Eamon Ponce MD CC: Tiff Garrett MD; Eamon Ponce MD Date Dictated: 08/15/18 1009 Date Transcribed: 08/15/18 100 Proof Inspector: PM Signed CARDIOLOGY VISIT Observed: 07/31/2018 Status: F Source: [place] RE[place] 3:18 PM [facility] [place] [facility] [address] [place] [address]. [address] [place] [address] OFFICE VISIT Date of Service: 07/31/18 MR#: [id number] Acct: [id number] Name: ALEX PENA Rep #: [id number] : 1955 Provider: Eamon Ponce MD Age/Sex: 63/M [place] [facility]: Signed HPI HPI Details: ALEX PENA, is a 63 M who presents to the office today for outpatient cardiovascular follow-up. Since his visit of approximately 1 year ago he states he has been doing well other than he gets some intermittent chest discomfort. He states that somewhat vague but it is an uncomfortable feeling that lets me know it is there . He has denied any episodes of CHF or pulmonary edema. There has been no near syncope or syncope. He states that after having his various dental procedures performed he notes that his diet has changed and he has lost weight. He also had his lipid labs performed recently. His total cholesterol and LDL cholesterol remain under good control. His HDL cholesterol was somewhat low-just under the lower limits of normal. Based upon his concerning symptoms he had an ECG today. He was noted to be in sinus rhythm. He does have an underlying right bundle branch block pattern Intake Vital Signs07/31/18 Height 5 ft 10 in 07/31/18 Weight: 207 lb 12/12/18 Body Mass Index (BMI) 29.7 07/31/18 Blood Pressure 124/88 H Intake Visit Reasons: 1 Y FU Allergies clonidine Allergy (Intermediate, Verified 07/31/18 14:33) Hives latex Allergy (Intermediate, Verified 07/31/18 14:33) Hives neomycin [From Neosporin ([id number])] Allergy (Intermediate, Verified 07/31/18 14:33) Hives polymyxin B [From Neosporin ([id number]-nyu-tiyxw)] Allergy (Intermediate, Verified 07/31/18 14:33) Hives carvedilol [From Coreg] Adverse Reaction (Severe, Verified 07/31/18 14:33) Suicidal Ideation lisinopril Adverse Reaction (Severe, Verified 07/31/18 14:33) dizziness,syncope,visual disturbance losartan Adverse Reaction (Severe, Verified 07/31/18 14:33) Visual Disturbances bacitracin Adverse Reaction (Intermediate, Verified 07/31/18 14:33) hives barium iodide Adverse Reaction (Intermediate, Verified 07/31/18 14:33) Vomiting metoprolol succinate Adverse Reaction (Severe, Uncoded 07/31/18 14:33) dizziness/passed out Hydrochlorathiazide Adverse Reaction (Mild, Uncoded 07/31/18 14:33) Dry Throat Medications omeprazole 40 mg capsule,delayed release 40 mg PO QDAY 07/26/17 [History Confirmed 07/31/18] vitamin A palmitate 10,000 unit tablet 10,000 unit PO QDAY 07/26/17 [History Confirmed 07/31/18] amlodipine 5 mg tablet 5 mg PO QDAY #90 tab 08/03/17 [Rx Confirmed 07/31/18] atenolol 50 mg tablet 25 mg PO QDAY #15 tab 08/03/17 [Rx Confirmed 07/31/18] antiarthritic combination no.2 900 mg tablet 900 mg PO DAILY tab 07/31/18 [History Confirmed 07/31/18] [facility] Medical History Essential hypertension (Chronic) Cardiomyopathy in diseases classified elsewhere (Chronic) Chest discomfort (Acute) Hyperlipidemia (Chronic) Family history of stroke (Chronic) GERD (gastroesophageal reflux disease) (Chronic) Legally blind (Chronic) Retinitis pigmentosa (Chronic) Hypertension (Inactive) Surgical History History of appendectomy (Resolved) Family History Mother CAD (coronary artery disease) Heart disease CVA (cerebral vascular accident) Hypertension Father Hypertension Brother CVA (cerebral vascular accident) Sister Myocardial infarction CAD (coronary artery disease) Hypertension Daughter Diabetes Social History Smoking Status: Never smoker ROS Const Const: Negative for fatigue, weakness, weight gain, weight loss, frequent falls or excessive sweating Eyes Eyes: Negative for change in vision, blurry vision or transient loss of vision ENT ENT: Negative for dizziness or balance problems Cardio Chest Pain: Yes Character: dull Onset: at rest, exercise Location: mid sternal Duration: brief Palpitations: No Edema: Bilateral (occasional) Muscle aches with walking: None Additional Details: Patient reports that he continues with a dull intermittent CP; Just enough to let u know it is there. Patient reports that at times it feels the same as previously reported. Resp Respiratory: Negative for SOB with activity or SOB at rest GI GI: Negative vomiting or vomiting blood/hematemesis : Negative for hematuria Musc Musc: Positive for joint pain (right knee); negative for balance problems, muscle aches/ myalgia or muscle weakness Skin Skin: Negative non-healing lesions or rash Neuro Neuro: Negative for weakness, blurry vision, dizziness, lightheadedness, frequent falls or orthostatic symptoms Iraj Hematologic/Lymphatic: Negative for easy bleeding Endo Endo: Negative for fatigue or excessive sweating Psych Psych: Negative for anxiety or depression Allergy Allergy/Immunology: Negative for hives, Negative for rash Cardiology Exam Const Appearance: cooperative, well developed, healthy appearing, comfortable and no acute distress Nutritional Appearance: average body habitus and obese Orientation: alert, awake and oriented x3 Head Head: normal to inspection Ears: hearing grossly normal bilaterally Nose: external nose normal Face and Sinus: face symmetric Mouth: oral mucosae normal Teeth and gingiva: poor dentition and fair dentition Eyes Eyelids: eyelids normal Pupils: PERRL EOM: EOM intact bilaterally Neck Neck: normal visual inspection and full ROM Carotids: normal carotid upstroke Chest Chest inspection: normal inspection of the chest, symmetric chest movement and normal respiratory effort Auscultation: Bilateral: Clear to Auscultation Cardio Palpation: normal PMI Rate: regular rate Rhythm: regular rhythm Heart sounds: S1 normal and S2 normal GI GI: obese, normal to inspection, soft and bowel sounds diminished Neuro General: alert, awake, oriented x3, gait normal and moves all extremities Skin Skin: no rashes or lesions noted Extremities Pulses: Normal: Right Radial Pulse, Left Radial Pulse Lower Extremity Edema: None: Bilateral Musculoskel Musculoskeletal: No joint tenderness, No joint redness, No joint warmth, No decreased ROM, No spinal deformity, No scoliosis, No lordosis Psych Psychological: normal affect Assessment AND Plan 1. Chest discomfort R07.89 Plan His chest discomfort is somewhat vague . However he does have cardiovascular risks. It is been approximately 6 years since his last exercise tolerance test. Thus it is recommended he undergo a subsequent exercise tolerance test/imaging study to reassess as to whether or not he has any concerning cardiovascular disease per Orders Orders: 2. Syncope and collapse R55 Plan He has had no recurrent near syncope or syncope 3. Hyperlipidemia, unspecified hyperlipidemia type E78.5 Plan His lipid labs have been reviewed. He will continue dietary therapy and exercise as best as possible at this time. 4. Essential hypertension I10 Plan His blood pressure, overall, has been reasonably well controlled. He will continue his current medical management. Orders Orders: Plan Detail Other Orders Orders: Other Medications New: Additional Comments He will be scheduled for an outpatient visit approximately 1 year unless needed sooner. Thank you for allowing me to participate in the care of your patient. Please don't hesitate to call if any issues arise. This note was generated using a voice recognition system and there may be incorrect words, spelling or punctuation that were not noted when reviewing the office note prior to saving. Follow Up 1 Year (PFM) Coding Level of Care Code Off vis,est,level 4 Diagnoses Chest discomfort R07.89 Syncope and collapse R55 Hyperlipidemia, unspecified hyperlipidemia type E78.5 Hyperlipidemia type: unspecified Essential hypertension I10 Coding Level of Care Code Off vis,est,level 4 Diagnoses Chest discomfort R07.89 Syncope and collapse R55 Hyperlipidemia, unspecified hyperlipidemia type E78.5 Hyperlipidemia type: unspecified Essential hypertension I10 07/31/18 1518 <Electronically signed by Eamon Ponce MD> Date Eamon Ponce MD Cosigner Signature: Date (if applicable) CC: Tiff Garrett MD 12 LEAD EKG PERFORMED Observed: 07/31/2018 Status: F Source: [place] [facility] [place] 2:47 PM [facility] [place] [facility] [address] [place] [address] 12 Lead EKG performed by [facility] 07/31/186 MR#: [id number] Acct: [id number] Name: ALEX PENA Rep #: [id number] : 1955 63 From: Eamon Ponce MD Attending Dr: Eamon Ponce MD Status: DEP AMB Ordering Dr: Eamon Ponce MD Date: 07/31/18 [place] [facility] [place] M C Admitted: BMS/12 Lead EKG performed by [facility] ECG Report Interpretation Sinus Rhythm Right bundle branch block. ABNORML Electronically signed on 07/31/2018 at 16:15 by Eamon Ponce Software Version [id number] 07/31/18 1620 Date Eamon Ponce MD CC: Tiff Garrett MD Date Dictated: 07/31/181445 Date Transcribed: 07/31/18 144 Proof Inspector: PM Signed LIVER PROFILE Collected: 07/29/2018 Status: F Source: [place] 10:56 AM [facility] [place] TYPE CODE TESTS RESULT OUT OF RANGE REFERENCE UNITS LAB L501.1500 6.4-8.2 g/dL Normal T PROT 7.1 LAB L501.1800 3.2-5.0 g/dL Normal ALB 3.4 LAB L501.1950 2.2-4.2 g/dL Normal GLOB 3.7 LAB L501.4100 15-37 U/L Normal AST 20 LAB L501.4305 45-117 U/L Normal ALK P 75 LAB L501.4405 16-61 U/L Normal ALT 28 LAB L501.4600 0.20-1.00 mg/dL Normal T BILI 0.70 LAB L501.4700 0.00-0.30 mg/dL Normal D BILI 0.21 Performed By: #### L500.3400, L500.4100 #### [facility] [address] [place], [place], [address] LIPID PROFILE Collected: 07/29/2018 Status: F Source: [place] 10:56 AM [facility] [place] TYPE CODE TESTS RESULT OUT OF RANGE REFERENCE UNITS LAB L501.4900 200 mg/dL Normal CHOL 153 Result Comment: <200 mg/dL Desirable 200-240 mg/dL Borderline >240 mg/dL High Risk LAB L501.5000 mg/dL Normal TRIG 76 Result Comment: The drugs N-Acetylcysteine and Metamizole may falsely depress this assay. Serum Triglycerides Reference Interval Normal <150 mg/dL Borderline high 150 - 199 mg/dL High 200 - 499 mg/dL Very High > or = 500 mg/dL LAB L501.6400 mg/dL Low HDL 39 Result Comment: The drugs N-Acetylcysteine and Metamizole may falsely depress this assay. Reference Range HDL <40 mg/dL Low HDL Cholesterol HDL >or= 60 mg/dL High HDL Cholesterol LAB L501.6500 0-130 mg/dL Normal LDL 99 LAB L501.6600 5-40 mg/dL Normal VLDL 15 Performed By: #### L500.3400, L500.4100 #### [facility] [address] [place], [place], [address] ALLERGIES ALLERGIES DATE TYPE / CODE NAME / CODE REACTION SEVERITY SOURCE 09/09/19 Drug lisinopril/[id number]( dizziness,synco SV Allergy/80042297 RXNORM) pe,visual Community 2(SNOMED [facility]) disturbance Hospital Repository 09/09/19 Drug neomycin/Q321711097(RX Hives [place] 19 Allergy/56518935 NORM) [facility] 2(SNOM[facility]) Hospital Repository 09/09/19 Drug bacitracin/I659799913( Hives [place] 19 Allergy/73030127 RXNORM) [facility] 2(SNOM[facility]) Hospital Repository 09/09/19 Drug carvedilol/E202599055( SUICIDAL [place] 19 Allergy/97722463 RXNORM) IDEATION Community 2(SNOMED [facility]) Hospital Repository 09/09/19 Drug clonidine/R795219809(R Hives [place] 19 Allergy/38371452 XNORM) [facility] 2(SNOM[facility]) Hospital Repository 09/09/19 Drug polymyxin Hives [place] 19 Allergy/82860908 B/L339104890(RXNORM) [facility] 2(SNOM[facility]) Hospital Repository 09/09/19 Drug losartan/H957678238(RX Visual [place] 19 Allergy/61297281 NORM) Disturbances [facility] 2(SNOM[facility]) Hospital Repository 09/09/19 Drug barium Vomiting [place] 19 Allergy/62058885 iodide/K860668129(RXNO Community 2(SNOMED CT) RM) Hospital Repository 09/09/19 Drug latex/I353610011(RXNOR Hives [place] 19 Allergy/26431466 M) [facility] 2(SNOM[facility]) Hospital Repository 09/09/19 Miscellaneous metoprolol succinate dizziness/passe [place] 19 Allergy/50999101 d out [facility] 6(SNOMED [facility]) Hospital Repository 09/09/19 Drug hydrochlorothiazide/F0 Unknown Unknown [place] 19 Allergy/96463456 54769327(RXNORM) Community 2(SNOMED CT) Hospital Repository 07/31/20 Miscellaneous Hydrochlorathiazide Dry Throat [place] 18 Allergy/93432181 Community 6(SNOMED CT) Hospital Repository ENCOUNTERS ENCOUNTERS ADMIT/DISCHARGE ACCOUNT ADMITTING ENCOUNTER LOCATION SOURCE NUMBER CLASS 09/10/2018 [id number] Ambulatory BMSBuilding:B [place] 5 MS.CF.[facility] Repository 09/10/2018/ [id number] Ambulatory [place] 9 5 [facility] ing:[facility] Repository 09/10/2018 [id number] Ambulatory BMSBuilding:B [place] 2 MS.[facility] Repository 08/22/2018/ [id number] Ambulatory BMSBuilding:B [place] 9 8 MS.[facility] Repository 08/15/2018 [id number] Ambulatory [place] 0 [facility] ing:[facility] Repository 08/15/2018 [id number] Ambulatory BMSBuilding:W [place] 1 [facility] Repository 07/31/2018/ [id number] Ambulatory BMSBuilding:B [place] 8 4 MS.[facility] Repository 07/29/2018 [id number] Ambulatory [place] 9 [facility] ing:LAB Repository PAYERS PAYERS ENCOUNTER GUARANTOR PAYER SUBSCRIBER SOURCE 09/10/2018 ALEX A Primary ALEX A [place] [id number] Insurance:[employer] CARE BRUBAKERDOB: Community REBECCA MEDICAREPolicy [id number] Number: Repository [address]Ypb: 330 [id number] [phone] () Date:6183-03-75DR [address] [address]UU: 09/10/2018 Secondary NOT GIVENUNK [place] Insurance:SELF PAY [facility] Number: Effective Repository Date:2018-09-10 09/10/2018 ALEX A Primary ALEX A [place] [id number] Insurance:SUMMA CARE BRUBAKERDOB: Community REBECCA MEDICAREPolicy [id number] Number: Repository [id number]: 330 [id number] [phone] () Date:[id number] [address]NY: 09/10/2018 Secondary NOT GIVENUNK [place] Insurance:SELF PAY [facility] Number: Effective Repository Date:2018-08-16 09/10/2018 ALEX A Primary ALEX A [place] [id number] [facility]: Community REBECCA MEDICAREPolicy [id number] [place] [address] Number: Repository [phone]: 330) [id number] [phone] (HP) Date:6346-42-93XI [address] [place] [address]AV: 09/10/2018 Secondary NOT GIVENUNK [place] Insurance:SELF PAY [facility] Effective Repository Date:2018-09-10 08/22/2018 ALEX A Primary ALEX A [place] [id number] Insurance:[employer] CARE BRUBAKERDOB: [facility] [id number] Number: Repository [id number]: (330 [id number] [phone]) Date:4866-33-11NW [address] [place] [address]UC: 08/22/2018 Secondary NOT GIVENUNK [place] Insurance:SELF PAY [facility] Number: Effective Repository Date:2018-08-22 08/15/2018 ALEX A Primary ALEX A [place] [id number] Insurance:[facility] CARE BRUBAKERDOB: [facility] [id number] Number: Repository [id number]: 330 [id number] [phone] () Date:2121-14-21XX [address] [address]XH: 08/15/2018 Secondary NOT GIVENUNK [place] Insurance:SELF PAY [facility] Number: Effective Repository Date:2018-07-31 08/15/2018 ALEX A Primary ALEX A [place] [id number] Insurance:[employer] CARE BRUBAKERDOB: [facility] [id number] Number: Repository [address]Bwq: 330 [id number] [phone] (HP) Date:7197-94-58MH [address] [address]UD: 08/15/2018 Secondary NOT GIVENUNK [place] Insurance:SELF PAY [facility] Number: Effective Repository Date:2018-08-15 07/31/2018 ALEX A Primary ALEX A [place] [id number] [facility]DOB: [facility] [id number] Number: Repository [id number]: 330 [id number] [phone] () Date:6958-63-24VX [address] [place] [address]IR: 07/31/2018 Secondary NOT GIVENUNK [place] Insurance:SELF PAY [facility] Number: Effective Repository Date:2018-07-31 07/29/2018 ALEX A Primary ALEX [place] [id number] [facility]: Community REBECCA MEDICAREPolicy [id number] Number: Repository [address]Xib: 330 [id number] [phone] () Date:6373-11-77IG [address] [place] [address]UD: 07/29/2018 Secondary NOT GIVENUNK [place] Insurance:SELF PAY [facility] Number: Effective Repository Date:2018-07-29
== END 2018-09-10 14:20 | disposition home or self-care (01) ==
LOC: CLSP 08:00
PROVIDERS: Family Provider Family Medicine; PCP Family Medicine; Referring Provider Internal Medicine Cardiovascular Disease; Visit Provider Internal Medicine Cardiovascular Disease
DX: R07.89 Other chest pain (principal); R94.39 Abnormal result of other cardiovascular function study; R55 Syncope and collapse; I10 Essential (primary) hypertension; E78.5 Hyperlipidemia, unspecified; H54.8 Legal blindness, as defined in USA; H35.52 Pigmentary retinal dystrophy; K21.9 Gastro-esophageal reflux disease without esophagitis; I42.9 Cardiomyopathy, unspecified; Z82.3 Family history of stroke
CPT/HCPCS: 36415; 71046; 80048; 85027; 85610; 85730; 93458; 99152; 99153; J7040; C1769; C1894; Q9967

== ENCOUNTER → 2018-09-19 13:04 | Outpatient (CLI) | payer MEDICARE, SELFPAY ==
[2018-09-09 07:46] VITALS: BMI 29.7
--- NOTE | 2018-09-19 13:12 | CT_ITS ---
STUDY: CTA OF THE ABDOMINAL AORTA AND BILATERAL LOWER EXTREMITIES REASON FOR EXAM: Male, 63 years old. Bilateral lower extremity numbness after heart catheterization RADIATION DOSAGE (If Supplied By Facility): CTDIvol = ( 9.38 ) mGy, DLP = ( 1739.37 ) mGycm TECHNIQUE: Axial CT angiography multi-detector data acquisition was obtained from the lung bases to the feet following intravenous administration of 100CC ml of Isovue 370 contrast. Axial images and MIP images were reconstructed from the axial data set. Post-processing of the angiographic images was performed, with multiplanar reformation and 3D reconstruction. Individualized dose optimization techniques were used for this CT. TECHNICAL QUALITY: Good COMPARISON: None. Descriptors of Narrowing: None (0%) Mild (< 50%) Moderate (50-70%) Severe (70-90%) Subtotal/Total Occlusion (90-100%) Non-Evaluable (technically non-diagnostic FINDINGS: Abdominal aorta: Mild atherosclerosis of the abdominal aorta with scattered atherosclerosis and tortuosity. Borderline fusiform abdominal aortic aneurysm at the level of the inferior mesenteric artery with axial diameter measuring 2.8 x 3.0 cm. No periaortic fluid identified. Celiac and superior mesenteric arteries: No demonstrated narrowing. Inferior mesenteric artery: No demonstrated narrowing. Right renal artery(arteries): There is moderate narrowing of the right renal artery (55% stenosis). Left renal artery(arteries): No demonstrated narrowing. Right common iliac artery: Tortuosity without dissection, aneurysm or stenosis. Right external iliac artery: No demonstrated narrowing. Right internal iliac artery: Minimal atherosclerosis without focal stenosis. Left common iliac artery: Tortuosity without dissection, aneurysm or stenosis. Left external iliac artery: No demonstrated narrowing. Left internal iliac artery: Minimal atherosclerosis without focal stenosis. RIGHT LOWER EXTREMITY Right common femoral artery: No demonstrated narrowing. Right profundus femoris: No demonstrated narrowing. Right superficial femoral: No demonstrated narrowing. Right popliteal artery: No demonstrated narrowing. Right tibioperoneal trunk: No demonstrated narrowing. Right anterior tibial artery: No demonstrated narrowing. Right posterior tibial artery: No demonstrated narrowing. Right peroneal artery: No demonstrated narrowing. LEFT LOWER EXTREMITY Left common femoral artery: No demonstrated narrowing. Left profundus femoris: No demonstrated narrowing. Left superficial femoral: No demonstrated narrowing. Left popliteal artery: No demonstrated narrowing. Left tibioperoneal trunk: No demonstrated narrowing. Left anterior tibial artery: No demonstrated narrowing. Left posterior tibial artery: No demonstrated narrowing. Left peroneal artery: No demonstrated narrowing. Visualized lung bases are unremarkable. The liver, spleen, pancreas and gallbladder are unremarkable. The adrenal glands are not focally enlarged. The kidneys are symmetric in size, shape and contrast enhancement. Bilateral nonobstructing renal calculi are identified measuring up to 5 mm. There is a simple cortical cyst of the right kidney measuring less than 1 cm. There are diverticular changes of the colon but no large or small bowel wall thickening. The appendix is not definitively seen. Urinary bladder is not well distended. No pelvic sidewall adenopathy. No lytic or sclerotic bone lesion. CT/CTA Abd w/Runoff W/WO Contrast IMPRESSION: 1. No hemodynamically significant stenosis of iliac, femoral, popliteal or infrapopliteal arteries. 2. Borderline fusiform aneurysm of the infrarenal abdominal aorta. 3. Bilateral nephrolithiasis without evidence of hydronephrosis. Electronically Signed: Edis Doty MD at 9:27 EST , Service support ,
== END ==
PROVIDERS: Family Provider Family Medicine; PCP Family Medicine; Referring Provider Internal Medicine Cardiovascular Disease; Visit Provider Internal Medicine Cardiovascular Disease
DX: R94.39 Abnormal result of other cardiovascular function study (principal); I10 Essential (primary) hypertension; R55 Syncope and collapse; I43 Cardiomyopathy in diseases classified elsewhere; R07.89 Other chest pain; E78.5 Hyperlipidemia, unspecified; R20.0 Anesthesia of skin
CPT/HCPCS: 75635; Q9967

== ENCOUNTER → 2019-01-16 14:30 | Outpatient (CLI) | payer MEDICARE, SELFPAY ==
[2018-09-24 16:23] VITALS: BMI 29.7
[2019-01-16 16:46] LABS: PSA,Total - Annual Screen 4.84 ng/mL (0.00-4.00)
== END ==
PROVIDERS: Family Provider Family Medicine; PCP Family Medicine; Referring Provider Nurse Practitioner Adult Health; Visit Provider Nurse Practitioner Adult Health
DX: Z12.5 Encounter for screening for malignant neoplasm of prostate (principal)
CPT/HCPCS: 36415; 84153; G0103

== ENCOUNTER → 2019-01-20 | Outpatient (CLI) | payer MEDICARE, SELFPAY ==
[2018-09-24 16:23] VITALS: BMI 29.7
[2019-01-20 15:39] LABS: Bacteria 0 SEEN /hpf (None Seen); Mucous, Urine 0 SEEN /hpf (<or=2+); Squamous Epithelial Cells - UA 0 SEEN /hpf (0-5)
[2019-01-20 16:27] LABS: Color, Urine Yellow (Yellow); Glucose, Dipstick Normal (Normal); Ketone-Dipstick Negative (Negative); Leukocyte Esterase-Dipstick 25 /ul (Negative); Nitrite-Dipstick Negative (Negative); Occult Blood-Urine 10 /ul (Negative); Protein-Dipstick Negative (Negative); Specific Gravity, Urine 1.015 (1.002-1.030); Urine Bilirubin Dipstick Negative (Negative); Urine Clarity Clear (Clear); Urine Urobilinogen Normal (Normal)
[2019-01-20 16:41] LABS: Red Blood Cells-Urine 0-5 SEEN /hpf (0-5); White Blood Cells 0-5 SEEN /hpf (0-5)
== END | disposition home or self-care (01) ==
LOC: LAB.FUTURE 15:35
PROVIDERS: Family Provider Family Medicine; PCP Family Medicine; Referring Provider Nurse Practitioner Adult Health; Visit Provider Nurse Practitioner Adult Health
DX: R31.29 Other microscopic hematuria (principal)
CPT/HCPCS: 81001

== ENCOUNTER → 2019-08-28 08:46 | Outpatient (CLI) | payer MEDICARE, SELFPAY ==
[2019-08-25 14:10] VITALS: BMI 30.5
[2019-08-28 09:51] LABS: AST(SGOT) 21 U/L (15-37); Alanine Aminotransfer ALT/SGPT 38 U/L (16-61); Albumin, Serum 3.5 g/dL (3.2-5.0); Alkaline Phosphatase 88 U/L (45-117); Cholesterol 172 mg/dL (200); High Density Lipoprotein 40 mg/dL; Protein, Total 7.5 g/dL (6.4-8.2); Triglycerides 63 mg/dL; Very Low Density Lipoprotein 13 mg/dL (5-40)
== END ==
PROVIDERS: Family Provider Family Medicine; PCP Family Medicine; Referring Provider Internal Medicine Cardiovascular Disease; Visit Provider Internal Medicine Cardiovascular Disease
DX: E78.00 Pure hypercholesterolemia, unspecified (principal)
CPT/HCPCS: 36415; 80061; 80076

== ENCOUNTER → 2019-08-29 08:46 | Outpatient (CLI) | payer MEDICARE, SELFPAY ==
[2019-08-25 14:10] VITALS: BMI 30.5
--- NOTE | 2019-08-29 08:46 | AAVD_ITS ---
Reason For Study: AAA Aorta Measurements Aorta Doppler Measurements Proximal aorta measures1.58 x 1.60cm. in cross- Peak systolic flow velocities within the proximal sectional axis. aorta measure 88.6 cm/sec. Proximal aorta measures1.67cm. in longitudinal Peak systolic flow velocities within the mid aorta axis. measure 117.7 cm/sec. Mid aorta measures2.66 x 2.96cm. in cross- Peak systolic flow velocities within the distal sectional axis. aorta measure 133 cm/sec. Mid aorta measures2.61cm. in longitudinal axis. Distal aorta measures1.56 x 1.62cm. in cross- sectional axis. Distal aorta measures1.48cm. in longitudinal axis. Left Iliac Artery Left iliac artery measures 1.18 x 1.20 cm. in the cross-sectional axis. Left iliac artery measures 1.13 cm. in the longitudinal axis. Peak systolic velocity in the left iliac artery measures 137.4 cm/sec. Right Iliac Artery Right iliac artery measures 1.33 x 1.34 cm. in the longitudinal axis. Right iliac artery measures 1.39 cm. in the cross-sectional axis. Peak systolic velocity in the right iliac artery measures 80.3 cm/sec. Procedure Aorta IVC Iliac vasculature or bypass grafts [id number]. Exam performed in department. Interpretation Summary Ectasia mid abdominal aorta to a maximum of 2.66 x 2.96 cm Slightly increased velocity flow distal abdominal aorta to 133 cm/s Left common iliac 1.18 x 1.2 cm with flow rate of 137 cm/s--slightly elevated Right common iliac 1.33 x 1.34 cm in diameter with flow rate of 80 cm/s Ordering Physician: Eamon Ponce Referring Physician: Tiff Garrett M.D. Performed By: Regina Gutierrez RVT
== END ==
PROVIDERS: Family Provider Family Medicine; PCP Family Medicine; Referring Provider Internal Medicine Cardiovascular Disease; Visit Provider Internal Medicine Cardiovascular Disease
DX: I10 Essential (primary) hypertension (principal); I71.4 Abdominal aortic aneurysm, without rupture
CPT/HCPCS: 93978

== ENCOUNTER → 2020-07-14 11:07 | Outpatient (CLI) | payer MEDICARE, SELFPAY ==
[2019-08-25 14:10] VITALS: BMI 30.5
[2020-07-14 12:53] LABS: Anion Gap 4 (5-15); BUN 13 mg/dL (7-18); BUN/Creat Ratio 13.5 RATIO (10-20); Calcium,Total 8.8 mg/dL (8.5-10.1); Chloride 106 mmol/L (98-107); Creatinine, Serum 0.96 mg/dL (0.70-1.30); EST Glomerular Filtration Rate 83 mL/min (>60); Est Glom Filt Rate - Afr Amer 101 mL/min (>60); Glucose 94 mg/dL (74-106); Potassium 3.7 mmol/L (3.5-5.1); Sodium Level 139 mmol/L (136-145)
== END ==
PROVIDERS: PCP Family Medicine; Referring Provider Family Medicine; Visit Provider Family Medicine
DX: I10 Essential (primary) hypertension (principal)
CPT/HCPCS: 36415; 80048

== ENCOUNTER → 2021-04-15 10:39 | Outpatient (CLI) | payer MEDICARE, SELFPAY ==
--- NOTE | 2021-04-15 10:42 | RAD_ITS ---
STUDY: X-RAY - LEFT RADIUS AND ULNA REASON FOR EXAM: Male, 66 years old. ARM PAIN TECHNIQUE: 2 view(s) of the forearm. COMPARISON: None. FINDINGS: There is no demonstrated soft tissue swelling. Normal visualized radius. Findings suggestive of an old avulsion fracture of the ulnar styloid. RAD/Forearm 2 Views IMPRESSION: Findings suggestive of an old avulsion fracture of the ulnar styloid. Electronically Signed: Jose Bryan MD at 11:00 EDT , Service support ,
== END ==
PROVIDERS: PCP Family Medicine; Referring Provider Family Medicine; Visit Provider Family Medicine
DX: M79.602 Pain in left arm (principal)
CPT/HCPCS: 73090

== ENCOUNTER → 2021-07-20 11:27 | Outpatient (CLI) | payer MEDICARE, SELFPAY ==
[2021-07-20 15:24] LABS: Anion Gap 8 (5-15); BUN 19 mg/dL (7-18); BUN/Creat Ratio 22.5 RATIO (10-20); Calcium,Total 8.6 mg/dL (8.5-10.1); Chloride 104 mmol/L (98-107); Cholesterol 172 mg/dL (200); Creatinine, Serum 0.84 mg/dL (0.70-1.30); EST Glomerular Filtration Rate 96 mL/min (>60); Est Glom Filt Rate - Afr Amer 117 mL/min (>60); Glucose 98 mg/dL (74-106); High Density Lipoprotein 38 mg/dL; PSA,Total - Annual Screen 3.47 ng/mL (0.00-4.00); Potassium 4.1 mmol/L (3.5-5.1); Sodium Level 139 mmol/L (136-145); Triglycerides 97 mg/dL; Very Low Density Lipoprotein 19 mg/dL (5-40)
== END ==
PROVIDERS: PCP Family Medicine; Referring Provider Family Medicine; Visit Provider Family Medicine
DX: I10 Essential (primary) hypertension (principal); Z12.5 Encounter for screening for malignant neoplasm of prostate
CPT/HCPCS: 36415; 80048; 80061; 84153; G0103

== ENCOUNTER 2021-09-09 07:31 | Outpatient (CLI) | payer MEDICARE, SELFPAY ==
--- NOTE | 2021-09-09 07:36 | AAVD_ITS ---
Reason For Study: Abdominal aorta ectasia Aorta Measurements Aorta Doppler Measurements Proximal aorta measures1.73 x 1.71cm. in cross- Peak systolic flow velocities within the proximal sectional axis. aorta measure 95.3 cm/sec. Proximal aorta measures1.72cm. in longitudinal Peak systolic flow velocities within the mid aorta axis. measure 74.4 cm/sec. Mid aorta measures3.23 x 3.43cm. in cross- Peak systolic flow velocities within the distal sectional axis. aorta measure 65.8 cm/sec. Mid aorta measures3.15cm. in longitudinal axis. Distal aorta measures1.71 x 1.71cm. in cross- sectional axis. Distal aorta measures1.70cm. in longitudinal axis. Left Iliac Artery Left iliac artery measures 1.08 x 1.07 cm. in the cross-sectional axis. Left iliac artery measures 1.10 cm. in the longitudinal axis. Peak systolic velocity in the left iliac artery measures 155 cm/sec. Right Iliac Artery Right iliac artery measures 1.24 x 1.24 cm. in the cross-sectional axis. Right iliac artery measures 1.27 cm. in the longitudinal axis. Peak systolic velocity in the right iliac artery measures 139.6 cm/sec. Procedure Aorta IVC Iliac vasculature or bypass grafts [id number]. Exam performed in department. VL/Abd Aortic/IVC Duplex scan Interpretation Summary Mid abdominal aortic aneurysm 3.23 x 3.43 cm in diameter. Normal aortic flow ra tram noted. Left common 1.08 x 1.07 cm in diameter which is normal. Right common iliac 1.24 x 1.24 cm diameter which is normal. Aortic findings have progressed into the definition of an aortic aneurysm from the previous study of August 29, 2019 Ordering Physician: Eamon Ponce Referring Physician: Tiff Garrett M.D. Performed By: Regina Gutierrez RVT
== END 2021-09-09 23:59 | disposition short-term general hospital (02) ==
PROVIDERS: PCP Family Medicine; Referring Provider Internal Medicine Cardiovascular Disease; Visit Provider Internal Medicine Cardiovascular Disease
DX: I10 Essential (primary) hypertension (principal); I77.811 Abdominal aortic ectasia
CPT/HCPCS: 93978

== ENCOUNTER → 2022-02-17 | Outpatient (CLI) | payer MEDICARE, SELFPAY ==
--- NOTE | 2022-02-17 15:46 | RAD_ITS ---
STUDY: X-RAY XR Forearm 2 Views REASON FOR EXAM: Male, 67 years old. PAIN Technologist Notes FALL 2 WEEKS AGO, CONTINUED BRUISING AND PAIN MID FOREARM TECHNIQUE: XR Forearm 2 Views LEFT COMPARISON: None. FINDINGS: There is no demonstrated soft tissue swelling. Normal visualized radius. Normal visualized ulna. RAD/Forearm 2 Views IMPRESSION: Normal x-ray examination of the radius and ulna. Electronically Signed: Brenden Patel MD at 16:59 EDT ,
== END | disposition home or self-care (01) ==
LOC: MTRAD 15:45
PROVIDERS: PCP Family Medicine; Referring Provider Family Medicine; Visit Provider Family Medicine
DX: S49.92XA Unspecified injury of left shoulder and upper arm, initial encounter (principal)
CPT/HCPCS: 73090

== ENCOUNTER → 2022-09-13 | Outpatient (CLI) | payer MEDICARE, SELFPAY ==
[2022-09-13 12:54] LABS: Anion Gap 4 (5-15); BUN 15 mg/dL (7-18); BUN/Creat Ratio 17.2 RATIO (10-20); Calcium,Total 8.8 mg/dL (8.5-10.1); Chloride 107 mmol/L (98-107); Cholesterol 150 mg/dL (200); Creatinine, Serum 0.87 mg/dL (0.70-1.30); EST Glomerular Filtration Rate 92 mL/min (>60); Est Glom Filt Rate - Afr Amer 111 mL/min (>60); Glucose 99 mg/dL (74-106); High Density Lipoprotein 35 mg/dL; Potassium 4.3 mmol/L (3.5-5.1); Sodium Level 141 mmol/L (136-145); Triglycerides 107 mg/dL; Very Low Density Lipoprotein 21 mg/dL (5-40)
[2022-09-13 18:23] LABS: Microalbumin,Random Urine 27.9 mg/L (NO RANGE EST.); Microalbumin:Creatinine Ratio 31.7 mg/g CRE (<30 mg/g CRE)
== END | disposition home or self-care (01) ==
LOC: MFPLAB 11:30
PROVIDERS: PCP Family Medicine; Referring Provider Family Medicine; Visit Provider Family Medicine
DX: Z00.00 Encounter for general adult medical examination without abnormal findings (principal); I10 Essential (primary) hypertension
CPT/HCPCS: 36415; 80048; 80061; 82043; 82570; 84153; G0103

== ENCOUNTER → 2022-10-18 | Outpatient (CLI) | payer MEDICARE, SELFPAY ==
--- NOTE | 2022-10-18 09:01 | AAVD_ITS ---
Reason For Study: AAA Aorta Measurements Aorta Doppler Measurements Proximal aorta measures1.94 x 1.92cm. in cross- Peak systolic flow velocities within the proximal sectional axis. aorta measure 101.3 cm/sec. Proximal aorta measures1.96cm. in longitudinal Peak systolic flow velocities within the mid aorta axis. measure 61.3 cm/sec. Mid aorta measures3.54 x 3.79cm. in cross- Peak systolic flow velocities within the distal sectional axis. aorta measure 71.1 cm/sec. Mid aorta measures3.54cm. in longitudinal axis. Distal aorta measures2.07 x 2.01cm. in cross- sectional axis. Distal aorta measures2.02cm. in longitudinal axis. There is no thrombus, flaps, dissection, dilitation, stenosis, or occlusion noted in the abdominal aorta. Left Iliac Artery Left iliac artery measures 1.19 x 1.21 cm. in the cross-sectional axis. Left iliac artery measures 1.18 cm. in the longitudinal axis. Peak systolic velocity in the left iliac artery measures 129.3 cm/sec. Right Iliac Artery Right iliac artery measures 1.49 x 1.44 cm. in the cross-sectional axis. Right iliac artery measures 1.39 cm. in the longitudinal axis. Peak systolic velocity in the right iliac artery measures 103 cm/sec. Procedure Aorta IVC Iliac vasculature or bypass grafts [id number]. Exam performed in department. VL/Abd Aortic/IVC Duplex scan Interpretation Summary Mid abdominal aortic aneurysm measuring 3.54 x 3.79 cm in diameter. Essentially normal aortic flow rates. Left common iliac artery borderline ectatic at 1.19 x 1.21 cm in diameter Right common iliac artery ectatic at 1.49 x 1.44 cm in diameter Previous maximal aortic diameter dimension of 3.43 cm on examination August Ordering Physician: Eamon Ponce Referring Physician: Tiff Garrett M.D. Performed By: Regina Gutierrez RVT
== END | disposition home or self-care (01) ==
LOC: CVS 08:58
PROVIDERS: PCP Family Medicine; Visit Provider Internal Medicine Cardiovascular Disease
DX: I10 Essential (primary) hypertension (principal); I77.811 Abdominal aortic ectasia
CPT/HCPCS: 93978

== ENCOUNTER → 2023-03-13 | Outpatient (CLI) | payer MEDICARE, SELFPAY ==
[2023-03-13 18:36] LABS: Anion Gap 4 (5-15); BUN 16 mg/dL (7-18); BUN/Creat Ratio 14.5 RATIO (10-20); Calcium,Total 8.7 mg/dL (8.5-10.1); Chloride 107 mmol/L (98-107); Cholesterol 165 mg/dL (200); EST Glomerular Filtration Rate 71 mL/min (>60); Est Glom Filt Rate - Afr Amer 85 mL/min (>60); Glucose 143 mg/dL (74-106); High Density Lipoprotein 40 mg/dL; Potassium 4.5 mmol/L (3.5-5.1); Sodium Level 139 mmol/L (136-145); Triglycerides 88 mg/dL; Very Low Density Lipoprotein 18 mg/dL (5-40)
== END | disposition home or self-care (01) ==
LOC: MFPLAB 15:51
PROVIDERS: PCP Family Medicine; Visit Provider Family Medicine
DX: I10 Essential (primary) hypertension (principal)
CPT/HCPCS: 36415; 80048; 80061

== ENCOUNTER → 2023-04-11 | Outpatient (CLI) | payer MEDICARE, SELFPAY ==
--- NOTE | 2023-04-11 12:54 | ECHOCS_ITS ---
Reason For Study: CARDIOMYOPATHY Procedure This was a 2D Doppler, Color Flow transthoracic echocardiogram. The study was technically difficult. Exam performed in department. Left Ventricle Normal size and thickness. Apical false tendon noted. The left ventricular ejection fraction is 65 %. Stage 1 diastolic dysfunction. Right Ventricle Normal RV size. Mild RV apical hypokinesis. Atria The left and right atria are normal. Mitral Valve Trivial mitral valve insufficiency. Tricuspid Valve Normal tricuspid valve. Aortic Valve Trisinus/trileaflet aortic valve. Trivial aortic valve insufficiency. Pulmonic Valve The pulmonic valve is not well visualized. Great Vessels Mildly dilated ascending aorta. Pericardium/Pleural No pericardial effusion. Medication 22 gauge I.V. with prn adaptor inserted into left arm. Diluted definity 2ml given slow IV push to enhance endocardial definition. MMode/2D Measurements & Calculations LVIDd: 4.9 cm IVSd: 0.90 cm LVOT diam: 2.0 cm LVIDs: 3.6 cm LVPWd: 0.90 cm RVDd: 3.2 cm FS: 27.5 % LVOT area: 3.2 cm2 Ao root diam: 3.6 cm LAV(MOD-bp): 50.1 ml LVAd ap4: 37.7 cm2 LAV(MOD-bp) Indexed: 23.8 ml/m2 LVLd ap4: 8.7 cm LAV(MOD-sp2): 54.7 ml EDV(MOD-sp4): 135.0 ml LAV(MOD-sp4): 41.0 ml EDV(sp4-el): 137.9 ml LVAs ap4: 24.6 cm2 LVLs ap4: 7.5 cm ESV(MOD-sp4): 71.2 ml ESV(sp4-el): 68.8 ml EF(MOD-sp4): 47.2 % EF(sp4-el): 50.1 % LVAd ap2: 38.5 cm2 SV(MOD-sp4): 63.7 ml SV(MOD-sp2): 79.4 ml LVLd ap2: 9.1 cm EDV(MOD-sp2): 138.5 ml EDV(sp2-el): 138.0 ml LVAs ap2: 23.3 cm2 LVLs ap2: 7.9 cm ESV(MOD-sp2): 59.1 ml ESV(sp2-el): 58.7 ml EF(MOD-sp2): 57.3 % SV(sp4-el): 69.0 ml LA dimension(2D): 3.4 cm LA A4 area: 16.2 cm2 RA A4 area: 15.5 cm2 TAPSE: 1.6 cm Time Measurements MV dec time: 0.27 sec Doppler Measurements & Calculations MV E max taz: 61.9 cm/sec Lat Peak E' Taz: 7.7 cm/sec Med Peak E' Taz: 9.0 cm/sec MV A max taz: 89.9 cm/sec E/E' lat: 8.0 E/E' med: 6.9 MV E/A: 0.69 Ao V2 max: 128.4 cm/sec LV V1 max: 104.9 cm/sec MV dec slope: 226.0 cm/sec2 Ao max P.6 mmHg LV V1 max P.4 mmHg Ao V2 mean: 82.5 cm/sec LV V1 mean P.5 mmHg Ao mean P.2 mmHg LV V1 mean: 74.9 cm/sec Ao V2 VTI: 24.8 cm LV V1 VTI: 21.7 cm AV (velocity ratio): 0.87 LESLI(I,D): 2.8 cm2 LESLI(V,D): 2.6 cm2 SV(LVOT): 69.3 ml PA V2 max: 112.8 cm/sec PA max PG (full): 2.6 mmHg ECHO/Echo Complete W/ Contrast Interpretation Summary The left ventricular ejection fraction is 65 %. Stage 1 diastolic dysfunction. Mild RV apical hypokinesis Mildly dilated ascending aorta. The study was technically difficult. Ordering Physician: Sushant Spence Referring Physician: Tiff Garrett M.D. Performed By: Viri Reich RDCS
== END | disposition home or self-care (01) ==
LOC: CVS 12:51
PROVIDERS: PCP Family Medicine; Referring Provider Nurse Practitioner Family; Visit Provider Nurse Practitioner Family
DX: I71.40 Abdominal aortic aneurysm, without rupture, unspecified (principal); I43 Cardiomyopathy in diseases classified elsewhere
CPT/HCPCS: 93306; Q9957; A4216; C8929

== ENCOUNTER → 2023-09-13 | Outpatient (CLI) | payer MEDICARE, SELFPAY ==
--- OUTSIDE RECORDS SUMMARY | 2023-09-13 16:08 | XMS RPT_ITS | CCD ---
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 DIAS Attending Unavaila ble TIFFANIE THOMAS, DR. PATEL Primary Care Unavailable Allergies Allergy Classification Reported Allergen(s) Allergy Type Date of Onset Reaction(s) Facility (2 sources) bacitracin drug allergy 04-07-20 11 Hives [facility] Work Phone: [phone] (2 sources) bacitracin / neomycin / polymyxin b drug allergy 04-07-20 11 Hives [facility] Work Phone: [phone] (2 sources) Barium drug allergy 04-07-20 11 Vomiting [facility] Work Phone: [phone] (2 sources) carvedilol drug allergy 01-19-20 15 Suicidal ideation [facility] Work Phone: [phone] (2 sources) cloNIDine drug allergy 03-13-20 13 Hives [facility] Work Phone: [phone] (2 sources) hydroCHLOROthiazide drug allergy 12-11-19 15 dry throat [facility] Work Phone: [phone] (4 sources) lisinopril drug allergy 07-24-20 12 dizziness, syncope, visual disturbances, dizziness, syncope [facility] Work Phone: [phone] (2 sources) losartan drug allergy 12-14-19 13 Visual disturbances [facility] Work Phone: [phone] (3 sources) natural latex rubber; Translations: [LATEX] allergy to substance 04-07-20 11 [facility] Work Phone: (1 source) bacitracin / neomycin / polymyxin b; Translations: [bacitracin/neomycin/p olymyxin B topical] Drug Allergy [facility] Medications Current Medications Medication Drug Class(es) Dates Sig (Normalized) Sig (Original) amLODIPine 5 mg oral tablet (20 sources) Dihydropyridine Calcium Channel Emelyn Start: 09-01-2022 amLODIPine 5 mg oral tablet 0 Refill(s) Start Date: 09/01/22 Status: Ordered Completed/Discontinued Medications Medication Drug Class(es) Dates Sig (Normalized) Sig (Original) carisoprodol 350 mg oral tablet (4 sources) Muscle Relaxant Start: 04-07-2011 End: 07-24-2012 SOMA 350 MG TABS 1 tablet by mouth 4 X daily CARISOPRODOL [id number] Eamon Ponce MD carvedilol 25 mg oral tablet (8 sources) alpha-Adrenergic Emelyn, beta-Adrenergic Emelyn Start: 08-07-2012 End: 01-18-2015 take 1 tablet by mouth twice daily CARVEDILOL 25 MG TABS One tablet by mouth twice daily CARVEDILOL [id number] Mary Brown RN Problems Active Problems Problem Classification Problem Date Documented Date Episodic/Chronic Disorders of lipid metabolism (2 sources) Hyperlipidemia; Translations: [Hyperlipidemia, unspecified] Onset: 06-03-2014 06-03-2014 Chronic Essential hypertension (2 sources) Hypertensive disorder; Translations: [Essential (primary) hypertension] Onset: 04-07-2011 04-07-2011 Chronic Other screening for suspected conditions (not mental disorders or infectious disease) (2 sources) Encounter for screening for malignant neoplasm of colon; Translations: [Encounter for screening for malignant neoplasm of colon] Onset: 09-01-2022 Episodic Paige-; endo-; and myocarditis; cardiomyopathy (2 sources) Cardiomyopathy in diseases classified elsewhere; Translations: [Cardiomyopathy in diseases classified elsewhere] Onset: 07-23-2012 07-23-2012 Chronic Unclassified (5 sources) Body mass index (BMI) 30.0-30.9, adult; Translations: [Body mass index (BMI) 31.0-31.9, adult] Onset: 05-19-2013 Resolved: 07-31-2016 07-31-2016 Chronic Unclassified (1 source) Body mass index (BMI) 31.0-31.9, adult; Translations: [Body mass index (BMI) 31.0-31.9, adult] Onset: 05-19-2013 05-19-2013 Chronic Unclassified (1 source) Long-term drug therapy; Translations: [Long-term (current) use of other medications] Onset: 06-03-2014 06-03-2014 Past or Other Problems Problem Classification Problem Date Documented Da te Episodic/Chronic Malaise and fatigue (2 sources) Fatigue; Translations: [Other fatigue] Onset: 11-17-2013 11-17-2013 Episodic Nonspecific chest pain (2 sources) Atypical chest pain; Translations: [Other chest pain] Onset: 07-24-2012 07-24-2012 Episodic Other aftercare (1 source) Long-term (current) use of other medications; Translations: [Long-term (current) use of other medications] Onset: 06-03-2014 06-03-2014 Episodic Other connective tissue disease (2 sources) Synovial cyst; Translations: [Other bursal cyst, unspecified site] 01-01-2012 Episodic Unclassified (4 sources) Family history of stroke; Translations: [FH: Hypertension] 12-03-2014 Episodic Results Test Name Value Interpretation Reference Range Facil ity Vital Signs Date Time Vital Sign Value Performing Clinician Faci lity 09-01-2022 10:50-0500 Diastolic Blood Pressure Non-Invasive [address] ARUN RIZZO MD [facility] 09-01-2022 10:50-0500 Heart rate 61 /min DR ARUN RIZZO MD [facility] 09-01-2022 10:50-0500 Respiratory rate 13 /min DR ARUN RIZZO MD [facility] 09-01-2022 10:50-0500 Systolic Blood Pressure Non-Invasive [address] ARUN RIZZO MD [facility] 01-13-2023 10:42-0500 Diastolic Blood Pressure Non-Invasive [address] ARUN RIZZO MD [facility] 09-01-2022 10:42-0500 Heart rate 52 /min DR ARUN RIZZO MD [facility] 09-01-2022 10:42-0500 Respiratory rate 17 /min DR ARUN RIZZO MD [facility] 09-01-2022 10:42-0500 Systolic Blood Pressure Non-Invasive [address] ARUN RIZZO MD [facility] 09-01-2022 10:37-0500 Diastolic Blood Pressure Non-Invasive [address] ARUN RIZZO MD [facility] 09-01-2022 10:37-0500 Heart rate 45 /min DR ARUN RIZZO MD [facility] 09-01-2022 10:37-0500 Respiratory rate 15 /min DR ARUN RIZZO MD [facility] 09-01-2022 10:37-0500 Systolic Blood Pressure Non-Invasive [address] ARUN RIZZO MD [facility] 09-01-2022 10:15-0500 Respiratory Rate - Anes 14 br/min DR ARUN RIZZO MD [facility] 09-01-2022 10:10-0500 Respiratory Rate - Anes 15 br/min DR ARUN RIZZO MD [facility] 09-01-2022 10:05-0500 Respiratory Rate - Anes 17 br/min DR ARUN RIZZO MD [facility] 09-01-2022 09:10-0500 Body height 177.[address] ARUN RIZZO MD [facility] 09-01-2022 09:10-0500 Body temperature 98.24 [degF] DR ARUN RIZZO MD [facility] 09-01-2022 09:10-0500 Body weight [address] ARUN RIZZO MD [facility] 09-01-2022 09:10-0500 Heart rate 66 /min DR ARUN RIZZO MD [facility] 07-31-2016 11:45-0500 BMI (Body Mass Index) 31.35 kg/m2 Stephy Whalen RN [facility] Work Phone: 07-31-2016 11:45-0500 BP Diastolic 80 mm[Hg] Stephy Whalen RN [facility] Work Phone: 07-31-2016 11:45-0500 BP Systolic 124 mm[Hg] Stephy Whalen RN [facility] Work Phone: 07-31-2016 11:45-0500 BSA (Body Surface Area) 2.14 m2 Stephy Whalen RN [facility] Work Phone: 07-31-2016 11:45-0500 Pulse (Heart Rate) 80 /min Stephy Whalen RN [facility] Work Phone: 07-31-2016 11:45-0500 Respiratory Rate 12 /min Stephy Whalen RN [facility] Work Phone: 07-31-2016 11:45-0500 Weight 97.71 kg Stephy Whalen RN [facility] Work Phone: 10-02-2011 08:31-0500 Height 176.53 cm Stephy Whalen RN [facility] Work Phone: Encounters Encounter Date Encounter Type Care Provider Facility Start: 09-01-2022 End: 09-01-[address] ARUN RIZZO MD. Facility:[facility] Start: 09-01-2022 End: 09-01-[address] ARUN RIZZO MD [facility] Procedures Date Procedure Procedure Detail Performing Clinician Start: 07-31-2016 End: 07-31-2016 Follow Up Appt 1 year Eamon Sanchez Start: 07-31-2016 End: 07-31-2016 PFM Eamon Ponce MD Start: 07-31-2016 End: 07-31-2016 Follow Up Appt 1 year Eamon Sanchez Start: 07-31-2016 End: 07-31-2016 PFM Eamon Ponce MD Start: 07-07-2015 End: 07-07-2015 Follow Up Appt 1 year Eamon Sanchez Start: 07-07-2015 End: 07-07-2015 PF Eamon Ponce MD Start: 07-07-2015 End: 07-07-2015 Follow Up Appt 1 year Eamon Sanchez Start: 07-07-2015 End: 07-07-2015 PF Eamon Ponce MD Start: 01-25-2015 End: 01-26-2015 Documentation of current medications Alexandra Saucedo PA-C Work Phone: Start: 01-25-2015 End: 01-26-2015 Documentation of current medications Alexandra Saucedo PA-C Work Phone: Start: 12-03-2014 End: 12-04-2014 Documentation of current medications Alexandra Saucedo PA-C Work Phone: Start: 12-03-2014 End: 01-14-2015 Follow Up Appt 6 months Alexandra treadwell PA-C Work Phone: Start: 12-03-2014 End: 01-14-2015 PFM Alexadnra Saucedo PA-C Work Phone: Start: 12-03-2014 End: 12-04-2014 Documentation of current medications Alexandra Saucedo PA-C Work Phone: Start: 12-03-2014 End: 01-14-2015 Follow Up Appt 6 months Alexandra treadwell PA-C Work Phone: Start: 12-03-2014 End: 01-14-2015 PFM Alexandra Saucedo PA-C Work Phone: Start: 06-01-2014 End: 06-02-2014 *Hepatic Function Panel Eamon Ponce MD Start: 06-01-2014 End: 06-01-2014 Follow Up Appt 6 months Eamon Ponce MD Start: 06-01-2014 End: 06-02-2014 Lipid 1996 panel - Serum or Plasma Eamon Ponce MD Start: 06-01-2014 End: 06-01-2014 MMM Eamon Ponce MD Start: 06-01-2014 End: 06-02-2014 *Hepatic Function Panel Eamon Ponce MD Start: 06-01-2014 End: 06-01-2014 Follow Up Appt 6 months Eamon Ponce MD Start: 06-01-2014 End: 06-02-2014 Lipid panel [AGGREGATE] Eamon Ponce MD Start: 06-01-2014 End: 06-01-2014 MANJULA Ponce MD Start: 11-17-2013 End: 06-01-2014 Ecg routine ecg w/least 12 lds w/i&r Alexandra Saucedo PA-C Work Phone: Start: 11-17-2013 End: 11-17-2013 Follow Up Appt 6 months Alexandra treadwell PA-C Work Phone: Start: 11-17-2013 End: 11-17-2013 PFM Alexandra Saucedo PA-C Work Phone: Start: 11-17-2013 End: 06-01-2014 Electrocardiogram, complete Alexandra Wells PA-C Work Phone: Start: 11-17-2013 End: 11-17-2013 Follow Up Appt 6 months Alexandra treadwell PA-C Work Phone: Start: 11-17-2013 End: 11-17-2013 PFM Alexandra Saucedo PA-C Work Phone: Start: 05-19-2013 End: 06-01-2014 *Hepatic Function Panel Eamon Ponce MD Start: 05-19-2013 End: 05-19-2013 Follow Up Appt 6 months Eamon Ponce MD Start: 05-19-2013 End: 05-19-2013 Follow Up Appt Other Eamon Ponce MD Start: 05-19-2013 End: 06-01-2014 Lipid 1996 panel - Serum or Plasma Eamon Ponce MD Start: 05-19-2013 End: 05-19-2013 MMM Eamon Ponce MD Start: 05-19-2013 End: 06-01-2014 *Hepatic Function Panel Eamon Ponce MD Start: 05-19-2013 End: 05-19-2013 Follow Up Appt 6 months Eamon Ponce MD Start: 05-19-2013 End: 05-19-2013 Follow Up Appt Other Eamon Ponce MD Start: 05-19-2013 End: 06-01-2014 Lipid panel [AGGREGATE] Eamon Ponce MD Start: 05-19-2013 End: 05-19-2013 MMM Eamon Ponce MD Start: 11-07-2012 End: 11-07-2012 Follow Up Appt 6 months Eamon Ponce MD Start: 11-07-2012 End: 11-07-2012 PFM Eamon Ponce MD Start: 11-07-2012 End: 11-07-2012 Follow Up Appt 6 months Eamon Ponce MD Start: 11-07-2012 End: 11-07-2012 PFM Eamon Ponce MD Start: 07-24-2012 End: 07-24-2012 Ecg routine ecg w/least 12 lds w/i&r Eamon Ponce MD Start: 07-24-2012 End: 11-07-2012 Echocardiography Eamon Ponce MD Start: 07-24-2012 End: 07-24-2012 Follow Up Appt 3 months Eamon Ponce MD Start: 07-24-2012 End: 11-07-2012 Echocardiography Eamon Ponce MD Start: 07-24-2012 End: 07-24-2012 Electrocardiogram, complete Eamon pantoja MD Start: 07-24-2012 End: 07-24-2012 Follow Up Appt 3 months Eamon Ponce MD Colonoscopy DR ARUN HELMS MD Injury of knee (disorder) DR ARUN RIZZO MD Surgery of cataract of left eye DR ARUN RIZZO MD Plan of Treatment Date Care Activity Detail Author Start: 07-30-2017 End: 07-30-2017 Appointment Appointment [facility] Work Phone: Start: 07-31-2016 End: 07-31-2016 Follow Up Appt 1 year Follow Up Appt 1 year [facility] Work Phone: Start: 07-31-2016 End: 07-31-2016 PFM PFM [facility] Work Phone: Start: 07-31-2016 End: 07-31-2016 Follow Up Appt 1 year Follow Up Appt 1 year [facility] Work Phone: Start: 07-31-2016 End: 07-31-2016 PFM PFM [facility] Work Phone: Start: 07-07-2015 End: 07-07-2015 Follow Up Appt 1 year Follow Up Appt 1 year [facility] Work Phone: Start: 07-07-2015 End: 07-07-2015 PFM PFM [facility] Work Phone: Start: 07-07-2015 End: 07-07-2015 Follow Up Appt 1 year Follow Up Appt 1 year [facility] Work Phone: Start: 07-07-2015 End: 07-07-2015 PFM PFM [facility] Work Phone: Start: 06-03-2015 End: 06-03-2014 *Hepatic Function Panel *Hepatic Function Panel [facility] Work Phone: Start: 06-03-2015 End: 06-03-2014 Lipid panel [AGGREGATE] *Lipid Profile CC PCP [facility] Work Phone: Start: 06-03-2015 End: 06-03-2014 *Hepatic Function Panel *Hepatic Function Panel [facility] Work Phone: Start: 06-03-2015 End: 06-03-2014 Lipid panel [AGGREGATE] *Lipid Profile CC PCP [facility] Work Phone: Start: 12-03-2014 End: 01-14-2015 Follow Up Appt 6 months Follow Up Appt 6 months [facility] Work Phone: Start: 12-03-2014 End: 01-14-2015 PFM PFM [facility] Work Phone: Start: 12-03-2014 End: 01-14-2015 Follow Up Appt 6 months Follow Up Appt 6 months [facility] Work Phone: Start: 12-03-2014 End: 01-14-2015 PF PF [facility] Work Phone: Start: 06-01-2014 End: 06-02-2014 *Hepatic Function Panel *Hepatic Function Panel [facility] Work Phone: Start: 06-01-2014 End: 06-01-2014 Follow Up Appt 6 months Follow Up Appt 6 months [facility] Work Phone: Start: 06-01-2014 End: 06-02-2014 Lipid panel [AGGREGATE] *Lipid Profile CC PCP [facility] Work Phone: Start: 06-01-2014 End: 06-01-2014 MM MM [facility] Work Phone: Start: 06-01-2014 End: 06-02-2014 *Hepatic Function Panel *Hepatic Function Panel [facility] Work Phone: Start: 06-01-2014 End: 06-01-2014 Follow Up Appt 6 months Follow Up Appt 6 months [facility] Work Phone: Start: 06-01-2014 End: 06-02-2014 Lipid panel [AGGREGATE] *Lipid Profile CC PCP [facility] Work Phone: Start: 06-01-2014 End: 06-01-2014 MM MM [facility] Work Phone: Start: 11-17-2013 End: 06-01-2014 Ecg routine ecg w/least 12 lds w/i&r EKG (In office) [facility] Work Phone: Start: 11-17-2013 End: 11-17-2013 Follow Up Appt 6 months Follow Up Appt 6 months [facility] Work Phone: Start: 11-17-2013 End: 11-17-2013 PFM PFM [facility] Work Phone: Start: 11-17-2013 End: 06-01-2014 Electrocardiogram, complete EKG (In office) [facility] Work Phone: Start: 11-17-2013 End: 11-17-2013 Follow Up Appt 6 months Follow Up Appt 6 months [facility] Work Phone: Start: 11-17-2013 End: 11-17-2013 PFM PFM [facility] Work Phone: Start: 05-19-2013 End: 06-01-2014 *Hepatic Function Panel *Hepatic Function Panel [facility] Work Phone: Start: 05-19-2013 End: 05-19-2013 Follow Up Appt 6 months Follow Up Appt 6 months [facility] Work Phone: Start: 05-19-2013 End: 05-19-2013 Follow Up Appt Other Follow Up Appt Other [facility] Work Phone: Start: 05-19-2013 End: 06-01-2014 Lipid panel [AGGREGATE] *Lipid Profile CC PCP [facility] Work Phone: Start: 05-19-2013 End: 05-19-2013 MMM MMM [facility] Work Phone: Start: 05-19-2013 End: 06-01-2014 *Hepatic Function Panel *Hepatic Function Panel [facility] Work Phone: Start: 05-19-2013 End: 05-19-2013 Follow Up Appt 6 months Follow Up Appt 6 months [facility] Work Phone: Start: 05-19-2013 End: 05-19-2013 Follow Up Appt Other Follow Up Appt Other [facility] Work Phone: Start: 05-19-2013 End: 06-01-2014 Lipid panel [AGGREGATE] *Lipid Profile CC PCP [facility] Work Phone: Start: 05-19-2013 End: 05-19-2013 MMM MMM [facility] Work Phone: Start: 11-07-2012 End: 11-07-2012 Follow Up Appt 6 months Follow Up Appt 6 months [facility] Work Phone: Start: 11-07-2012 End: 11-07-2012 PFM PFM [facility] Work Phone: Start: 11-07-2012 End: 11-07-2012 Follow Up Appt 6 months Follow Up Appt 6 months [facility] Work Phone: Start: 11-07-2012 End: 11-07-2012 PFM PFM [facility] Work Phone: Start: 07-24-2012 End: 07-24-2012 Ecg routine ecg w/least 12 lds w/i&r EKG (In office) [facility] Work Phone: Start: 07-24-2012 End: 07-24-2012 Echocardiography Echocardiogram (complete) [facility] Work Phone: Start: 07-24-2012 End: 07-24-2012 Follow Up Appt 3 months Follow Up Appt 3 months [employer] [facility] Work Phone: Start: 07-24-2012 End: 07-24-2012 Echocardiography Echocardiogram (complete) [facility] Work Phone: Start: 07-24-2012 End: 07-24-2012 Electrocardiogram, complete EKG (In office) [facility] Work Phone: Start: 07-24-2012 End: 07-24-2012 Follow Up Appt 3 months Follow Up Appt 3 months [employer] Work Phone: Patient Education HYPERLIPIDEMIA [facility] Work Phone: Payers Date Payer Category Payer Unknown [id number] 1955 Unknown [id number] Social History Date Type Detail Facility Tobacco smoking status No Smoking Status Entered [facility] Sex Assigned At Male [facility] Functional Status Date Assessment Result Facility 09-01-2022 Functional Status Standard Safet y Safety level maintained [facility] 09-01-2022 Functional Status Maintained [facility]i [facility] Mental Status Date Assessment Result Facility 09-01-2022 Mental Status Oriented x [facility] Evaluation + Plan note 09-01-2022 Note Date & Type Note Facility [facility] ADMISSION HISTORY AN D PHYSICIAL CHIEF COMPLAINT: HISTORY OF PRESENT ILLNESS: REVIEW OF SYSTEMS: ACTIVE PROBLEMS: (8) Acid reflux disease (710110466) Arthritis of knee, right (4652338814) Disc disorder (73586836) Heart abnormality (37380403) Heart disease (42696052) Hypertension (4764604644) Retinitis pigmentosa (73023982) Vision defect, color (6244036818) MEDICATIONS: Active Inpt Meds: None Active PRN Meds: None One Time Meds: None Active IV Meds: Lactated Ringers Infusion 1,000 mL (LR 1,000 mL) Start: 09/01/22 9:14:00 EST, Rate: 50 mL/hr, 09/01/22 9:14:00 EST ALLERGIES: (2) Latex Triple Antibiotic Ointment 400 FAMILY HISTORY: SOCIAL HISTORY: PHYSICAL EXAM: VITALS: [id number](kg) 09/01 09:1036.8--[id number]/13 90.0 24 Hr Tmax: 36.8 at 09/01 09:10 36 Hr Tmax: 36.8 at 09/01 09:10 Vital Signs are the last 5 in the past 48 hours. Weights display the last 5 within 7 days. Initial Wt: 09/01 90.0 kg 198 lb Current Wt: 09/01 90.0 kg 198 lb GENERAL: HEENT: CARDIOVASCULAR: RESPIRATORY: ABDOMEN: EXREMETIES: NEUROLOGICAL: PSYCHIATRIC: LABS: No 36hr Lab Data DIAGNOSTICS: IMPRESSION: PLAN: History and Physical Update I have examined the patient; reviewed the H&P and there are no changes to the H&P unless noted below. [facility] Hospital Discharge instructions 09-01-2022 Note Date & Type Note Facility 09-01-2022 Hospital Discharg e instructions Patient Education 09/01/2022 10:30:03 Moderate Conscious Sedation, Adult, Care After Moderate Conscious Sedation, Adult, Care After These instructions provide you with information about caring for yourself after your procedure. Your health care provider may also give you more specific instructions. Your treatment has been planned according to current medical practices, but problems sometimes occur. Call your health care provider if you have any problems or questions after your procedure. What can I expect after the procedure? After your procedure, it is common: To feel sleepy for several hours. To feel clumsy and have poor balance for several hours. To have poor judgment for several hours. To vomit if you eat too soon. Follow these instructions at home: For at least 24 hours after the procedure: Do not: ?Participate in activities where you could fall or become injured. ?Drive. ?Use heavy machinery. ?Drink alcohol. ?Take sleeping pills or medicines that cause drowsiness. ?Make important decisions or sign legal documents. ?Take care of children on your own. Rest. Eating and drinking Follow the diet recommended by your health care provider. If you vomit: ?Drink water, juice, or soup when you can drink without vomiting. ?Make sure you have little or no nausea before eating solid foods. General instructions Have a responsible adult stay with you until you are awake and alert. Take [id number] and prescription medicines only as told by your health care provider. If you smoke, do not smoke without supervision. Keep all follow-up visits as told by your health care provider. This is important. Contact a health care provider if: You keep feeling nauseous or you keep vomiting. You feel light-headed. You develop a rash. You have a fever. Get help right away if: You have trouble breathing. This information is not intended to replace advice given to you by your health care provider. Make sure you discuss any questions you have with your health care provider. Document Released: 05/27/2014 Document Revised: 07/19/2018 Document Reviewed: 11/25/2016 [facility] Patient Education 2020 [employer]. 09/01/2022 10:30:00 Colon Polyps Colon Polyps Polyps are tissue growths inside the body. Polyps can grow in many places, including the large intestine (colon). A polyp may be a round bump or a mushroom-shaped growth. You could have one polyp or several. Most colon polyps are noncancerous (benign). However, some colon polyps can become cancerous over time. Finding and removing the polyps early can help prevent this. What are the causes? The exact cause of colon polyps is not known. What increases the risk? You are more likely to develop this condition if you: Have a family history of colon cancer or colon polyps. Are older than 50 or older than 45 if you are . Have inflammatory bowel disease, such as ulcerative colitis or Crohn's disease. Have certain hereditary conditions, such as: ?Familial adenomatous polyposis. ?Dimas syndrome. ?Turcot syndrome. ?Peutz Jeghers syndrome. Are overweight. Smoke cigarettes. Do not get enough exercise. Drink too much alcohol. Eat a diet that is high in fat and red meat and low in fiber. Had childhood cancer that was treated with abdominal radiation. What are the signs or symptoms? Most polyps do not cause symptoms. If you have symptoms, they may include: Blood coming from your rectum when having a bowel movement. Blood in your stool. The stool may look dark red or black. Abdominal pain. A change in bowel habits, such as constipation or diarrhea. How is this diagnosed? This condition is diagnosed with a colonoscopy. This is a procedure in which a lighted, flexible scope is inserted into the anus and then passed into the colon to examine the area. Polyps are sometimes found when a colonoscopy is done as part of routine cancer screening tests. How is this treated? Treatment for this condition involves removing any polyps that are found. Most polyps can be removed during a colonoscopy. Those polyps will then be tested for cancer. Additional treatment may be needed depending on the results of testing. Follow these instructions at home: Lifestyle Maintain a healthy weight, or lose weight if recommended by your health care provider. Exercise every day or as told by your health care provider. Do not use any products that contain nicotine or tobacco, such as cigarettes and e-cigarettes. If you need help quitting, ask your health care provider. If you drink alcohol, limit how much you have: ?0 1 drink a day for women. ? 0 2 drinks a day for men. Be aware of how much alcohol is in your drink. In the [place] one drink equals one 12 oz bottle of beer (355 mL), one 5 oz glass of wine (148 mL), or one 1 oz shot of hard liquor (44 mL). Eating and drinking Eat foods that are high in fiber, such as fruits, vegetables, and whole grains. Eat foods that are high in calcium and vitamin D, such as milk, cheese, yogurt, eggs, liver, fish, and broccoli. Limit foods that are high in fat, such as fried foods and desserts. Limit the amount of red meat and processed meat you eat, such as hot dogs, sausage, red, and lunch meats. General instructions Keep all follow-up visits as told by your health care provider. This is important. ?This includes having regularly scheduled colonoscopies. ?Talk to your health care provider about when you need a colonoscopy. Contact a health care provider if: You have new or worsening bleeding during a bowel movement. You have new or increased blood in your stool. You have a change in bowel habits. You lose weight for no known reason. Summary Polyps are tissue growths inside the body. Polyps can grow in many places, including the colon. Most colon polyps are noncancerous (benign), but some can become cancerous over time. This condition is diagnosed with a colonoscopy. Treatment for this condition involves removing any polyps that are found. Most polyps can be removed during a colonoscopy. This information is not intended to replace advice given to you by your health care provider. Make sure you discuss any questions you have with your health care provider. Document Released: 05/02/2005 Document Revised: 11/21/2018 Document Reviewed: 11/21/2018 [facility] Patient Education 2020 [employer]. 09/01/2022 10:29:55 Colon Biopsy, Care After Colon Biopsy, Care After This sheet gives you information about how to care for yourself after your procedure. Your health care provider may also give you more specific instructions. If you have problems or questions, contact your health care provider. What can I expect after the procedure? After the procedure, it is common to have: A small amount of blood in your stool for 24 hours after the procedure. Some gas. Mild cramping or bloating in your abdomen. Follow these instructions at home: General instructions For the first 24 hours after the procedure: ?Do not drive or use machinery. ?Do not sign important documents. ?Do not drink alcohol. ?Do your regular daily activities at a slower pace than normal. ?Eat soft, xqmh-qp-yzfzrn foods. ?Rest often. Take kdwq-amw-lrwebfz or prescription medicines only as told by your health care provider. Keep all follow-up visits as told by your health care provider. This is important. Relieving cramping and bloating Try walking around when you have cramps or feel bloated. Put heat on your abdomen as told by your health care provider. Use a heat source that your health care provider recommends, such as a moist heat pack or a heating pad. ?Place a towel between your skin and the heat source. ?Leave the heat on for 20 30 minutes. ?Remove the heat if your skin turns bright red. This is especially important if you are unable to feel pain, heat, or cold. You may have a greater risk of getting burned. Eating and drinking Drink enough fluid to keep your urine pale yellow. Return to your normal diet as instructed by your health care provider. Avoid heavy or fried foods that are hard to digest. Avoid drinking alcohol for as long as told by your health care provider. Contact a health care provider if: You have blood in your stool 2 3 days after the procedure. Get help right away if: You have more than a small spotting of blood in your stool. You pass large blood clots in your stool. Your abdomen is swollen. You have nausea or vomiting. You have a fever. You have increasing abdominal pain that is not relieved with medicine. Summary After the procedure, it is common to have mild cramping and bloating in the abdomen. Do not drive for 24 hours after the procedure. Try walking around when you have cramps or feel bloated. This information is not intended to replace advice given to you by your health care provider. Make sure you discuss any questions you have with your health care provider. Document Released: 01/15/2018 Document Revised: 07/19/2018 Document Reviewed: 01/15/2018 [facility] Patient Education 2019 [employer]. Follow Up Care 08/02/2022 13:04:16 With:ARUN RIZZO MD Address: [address] [address] [phone] When: Unknown Comments:Pathology results will be called to you and a report will be sent to your PCP. Repeat colonoscopy in 3-4 years depending upon pathology results. [facility] Anesthesiology Consult note 09-01-2022 Note Date & Type Note Facility 09-01-2022 Anesthesiology Consult note Patient: AELX PENA Age: 67 years Sex: Male : 1955 Associated Diagnoses: None Author: CHERYL ASTUDILLO Assessment Postanesthesia assessment Vitals: Reviewed Results: Vital signs from flowsheet : Vital Signs(Date Range: 08/31/2022 0:00 EST - 09/01/2022 10:43 EST) . Mental status: at preoperative baseline, alert & oriented x 4. Respiratory function: lungs are clear to auscultation. Respiratory support: none. CV function: Normal rate. Cardiovascular support: none. Pain. Nausea status: denies nausea. Postoperative hydration status: within normal limits. Digitally Signed by CHERYL ASTUDILLO on 09/01/2022 10:44 AM [facility] Summary of episode note 09-01-2022 Note Date & Type Note Facility 09-01-2022 Summary of episode note Discharge Instructions Thank you for allowing [place] to assist you with your healthcare needs. The following is important discharge information regarding your hospital visit. Your Care Team JORGE MORENO MD What to do next Follow Up Appointments Follow Up with ARUN RIZZO MD When Why: Pathology results will be called to you and a report will be sent to your PCP. Repeat colonoscopy in 3-4 years depending upon pathology results. Where: [address] [facility] [address] [place] [address]- [phone] The Following Activity and Diet Have Been Ordered for You No qualifying data available. No qualifying data available. The Following Equipment Has Been Ordered for You No qualifying data available. The Following Treatments Have Been Ordered for You Discharge Labs No qualifying data available. Discharge Radiology No qualifying data available. Other Therapies No qualifying data available. Post Acute Orders No qualifying data available. Someone Will Contact You Regarding These Home Health Referrals No home referrals have been ordered for you. No one will call you. Allergies Latex Triple Antibiotic Ointment 400 u-3.5 mg-5000 u/gm ointment Medications Please ask your primary doctor or pharmacist before taking any other medication not listed, including over the counter drugs, herbal medications, vitamins and or supplements as they may interact with your home medications. What When Instructions Last Dose Unchanged amLODIPine (amLODIPine 5 mg oral tablet) Unchanged atenolol (atenolol 25 mg oral tablet) Unchanged omeprazole (omeprazole 40 mg oral delayed release capsule) Unchanged tiZANidine (tiZANidine 4 mg oral tablet) Unchanged triamcinolone topical (triamcinolone 0.1% topical cream) Please take this list to your next doctor s visit. Bring all medications you take, including over the counter medications, herbals and other supplements with you to your doctor s visit. Patients and families are reminded to discard old lists and to update any records with all medication providers or retail pharmacies. Education Materials Moderate Conscious Sedation, Adult, Care After These instructions provide you with information about caring for yourself after your procedure. Your health care provider may also give you more specific instructions. Your treatment has been planned according to current medical practices, but problems sometimes occur. Call your health care provider if you have any problems or questions after your procedure. What can I expect after the procedure? After your procedure, it is common: To feel sleepy for several hours. To feel clumsy and have poor balance for several hours. To have poor judgment for several hours. To vomit if you eat too soon. Follow these instructions at home: For at least 24 hours after the procedure: Do not: ? Participate in activities where you could fall or become injured. ? Drive. ? Use heavy machinery. ? Drink alcohol. ? Take sleeping pills or medicines that cause drowsiness. ? Make important decisions or sign legal documents. ? Take care of children on your own. Rest. Eating and drinking Follow the diet recommended by your health care provider. If you vomit: ? Drink water, juice, or soup when you can drink without vomiting. ? Make sure you have little or no nausea before eating solid foods. General instructions Have a responsible adult stay with you until you are awake and alert. Take evfp-flp-jjqezui and prescription medicines only as told by your health care provider. If you smoke, do not smoke without supervision. Keep all follow-up visits as told by your health care provider. This is important. Contact a health care provider if: You keep feeling nauseous or you keep vomiting. You feel light-headed. You develop a rash. You have a fever. Get help right away if: You have trouble breathing. This information is not intended to replace advice given to you by your health care provider. Make sure you discuss any questions you have with your health care provider. Document Released: 05/27/2014 Document Revised: 07/19/2018 Document Reviewed: 11/25/2016 [facility] Patient Education 2020 [employer]. Colon Polyps Polyps are tissue growths inside the body. Polyps can grow in many places, including the large intestine (colon). A polyp may be a round bump or a mushroom-shaped growth. You could have one polyp or several. Most colon polyps are noncancerous (benign). However, some colon polyps can become cancerous over time. Finding and removing the polyps early can help prevent this. What are the causes? The exact cause of colon polyps is not known. What increases the risk? You are more likely to develop this condition if you: Have a family history of colon cancer or colon polyps. Are older than 50 or older than 45 if you are . Have inflammatory bowel disease, such as ulcerative colitis or Crohn's disease. Have certain hereditary conditions, such as: ? Familial adenomatous polyposis. ? Dimas syndrome. ? Turcot syndrome. ? Peutz Jeghers syndrome. Are overweight. Smoke cigarettes. Do not get enough exercise. Drink too much alcohol. Eat a diet that is high in fat and red meat and low in fiber. Had childhood cancer that was treated with abdominal radiation. What are the signs or symptoms? Most polyps do not cause symptoms. If you have symptoms, they may include: Blood coming from your rectum when having a bowel movement. Blood in your stool. The stool may look dark red or black. Abdominal pain. A change in bowel habits, such as constipation or diarrhea. How is this diagnosed? This condition is diagnosed with a colonoscopy. This is a procedure in which a lighted, flexible scope is inserted into the anus and then passed into the colon to examine the area. Polyps are sometimes found when a colonoscopy is done as part of routine cancer screening tests. How is this treated? Treatment for this condition involves removing any polyps that are found. Most polyps can be removed during a colonoscopy. Those polyps will then be tested for cancer. Additional treatment may be needed depending on the results of testing. Follow these instructions at home: Lifestyle Maintain a healthy weight, or lose weight if recommended by your health care provider. Exercise every day or as told by your health care provider. Do not use any products that contain nicotine or tobacco, such as cigarettes and e-cigarettes. If you need help quitting, ask your health care provider. If you drink alcohol, limit how much you have: ? 0 1 drink a day for women. ? 0 2 drinks a day for men. Be aware of how much alcohol is in your drink. In the [place] one drink equals one 12 oz bottle of beer (355 mL), one 5 oz glass of wine (148 mL), or one 1 oz shot of hard liquor (44 mL). Eating and drinking Eat foods that are high in fiber, such as fruits, vegetables, and whole grains. Eat foods that are high in calcium and vitamin D, such as milk, cheese, yogurt, eggs, liver, fish, and broccoli. Limit foods that are high in fat, such as fried foods and desserts. Limit the amount of red meat and processed meat you eat, such as hot dogs, sausage, red, and lunch meats. General instructions Keep all follow-up visits as told by your health care provider. This is important. ? This includes having regularly scheduled colonoscopies. ? Talk to your health care provider about when you need a colonoscopy. Contact a health care provider if: You have new or worsening bleeding during a bowel movement. You have new or increased blood in your stool. You have a change in bowel habits. You lose weight for no known reason. Summary Polyps are tissue growths inside the body. Polyps can grow in many places, including the colon. Most colon polyps are noncancerous (benign), but some can become cancerous over time. This condition is diagnosed with a colonoscopy. Treatment for this condition involves removing any polyps that are found. Most polyps can be removed during a colonoscopy. This information is not intended to replace advice given to you by your health care provider. Make sure you discuss any questions you have with your health care provider. Document Released: 05/02/2005 Document Revised: 11/21/2018 Document Reviewed: 11/21/2018 [facility] Patient Education 2020 [employer] Colon Biopsy, Care After This sheet gives you information about how to care for yourself after your procedure. Your health care provider may also give you more specific instructions. If you have problems or questions, contact your health care provider. What can I expect after the procedure? After the procedure, it is common to have: A small amount of blood in your stool for 24 hours after the procedure. Some gas. Mild cramping or bloating in your abdomen. Follow these instructions at home: General instructions For the first 24 hours after the procedure: ? Do not drive or use machinery. ? Do not sign important documents. ? Do not drink alcohol. ? Do your regular daily activities at a slower pace than normal. ? Eat soft, kfwh-pr-ejvqyd foods. ? Rest often. Take vjvv-nbs-lkvhvau or prescription medicines only as told by your health care provider. Keep all follow-up visits as told by your health care provider. This is important. Relieving cramping and bloating Try walking around when you have cramps or feel bloated. Put heat on your abdomen as told by your health care provider. Use a heat source that your health care provider recommends, such as a moist heat pack or a heating pad. ? Place a towel between your skin and the heat source. ? Leave the heat on for 20 30 minutes. ? Remove the heat if your skin turns bright red. This is especially important if you are unable to feel pain, heat, or cold. You may have a greater risk of getting burned. Eating and drinking Drink enough fluid to keep your urine pale yellow. Return to your normal diet as instructed by your health care provider. Avoid heavy or fried foods that are hard to digest. Avoid drinking alcohol for as long as told by your health care provider. Contact a health care provider if: You have blood in your stool 2 3 days after the procedure. Get help right away if: You have more than a small spotting of blood in your stool. You pass large blood clots in your stool. Your abdomen is swollen. You have nausea or vomiting. You have a fever. You have increasing abdominal pain that is not relieved with medicine. Summary After the procedure, it is common to have mild cramping and bloating in the abdomen. Do not drive for 24 hours after the procedure. Try walking around when you have cramps or feel bloated. This information is not intended to replace advice given to you by your health care provider. Make sure you discuss any questions you have with your health care provider. Document Released: 01/15/2018 Document Revised: 07/19/2018 Document Reviewed: 01/15/2018 [employer] Patient Education 2020 [employer] Additional Information VACCINATE! IT SAVES LIVES! Members of the community who have not yet received the COVID-19 vaccine and would like to receive it can visit one of [facility] vaccine clinics. There are many vaccine clinic locations within the [facility]. For locations and available times, please visit https://[email or web address].[place].gov/. It is important to note that some COVID mobile vaccine clinics are held outdoors and may be canceled in rainy or stormy conditions. To learn more about pediatric vaccinations (ages 5-11), we invite you to visit the [facility] webpage. https://www.CH4es.org/pag es/7304-Nzwkr-Gvoxgrerpda-Frequent on-Wwkga-Fcxshigit.html To learn more about the COVID-19 vaccine, we invite you to visit the [facility] website for a list of frequently asked questions. [email or web address]-[email or web address]-Pbfmp ently_[email or web address]-Questions.pdf [facility] Patient Portal Access Instructions: Stay connected with your healthcare team and access your personal medical information anytime with the [facility] Patient Portal.If you would like a full copy of your medical records, please contact the [facility] Medical Records Department, Sunday through Sunday between 8a.m. and 4:30p.m. Please follow the directions below to access the portal: 1.Access the email account you provided upon registration to the [facility].2.Look for an invitation email from [facility].3.Open the email and access the invitation link: Accept Invitation to [facility].Fill in the required osorio to create your account. Sign into [email or web address] with your username and password that you created in the above steps to stay up to date. You can then view a summary of results, a summary of your visits, and the ability to download your summaries to your computer or send the information securely to a physician. Remember that your healthcare information is confidential, so carefully consider who you will allow to register on the [facility] Patient Portal for access to your information. You can also access the [facility] Patient Portal on the [employer]. Simply click on Health Records under Health Data and then click on the [employer] logo. HOW TO SAFELY DISPOSE OF PRESCRIPTION MEDICATIONS Please use one of the following methods to safely dispose of your unused medications. 1.Use a drug disposal kit: the drug disposal pouch allows you to safely discard your old and unused drugs. Ask your nurse to give you one when you are discharged.2.Visit a local take-back location: Many local pharmacies and police departments have programs that collect old and unwanted prescription drugs. Call your local pharmacy or go to http://51Talk.SciQuest/6W2Gh2r to find one close to you.3.Make use of household items: Use cat litter or old coffee grounds to dispose medications if other options are not available. Mix your drugs with these household products, seal them in an airtight container and throw it into the garbage. Call [facility]: [phone] to be sure your drugs can be disposed of in this way. Some medicines may require a different approach.4.Never flush your medications down the toilet. IF YOU HAVE BEEN PRESCRIBED AN OPIOID FOR PAIN If you have been prescribed an opioid (such as hydrocodone, oxycodone or morphine), it is critical to understand the possible side effects and risks of opioid pain medications. Even when taken as directed, opioids can have several side effects including: Tolerance, meaning you might need to take more of a medication for the same pain relief. Nausea, vomiting and/or constipation. Sleepiness, dizziness, dry mouth, confusion, depression or itching. Physical dependence, meaning you have withdrawal symptoms when a medication is stopped, can develop within a few days. KNOW YOUR RESPONSIBILITIES It is important to know exactly how much and how often to take the opioid pain medications you are prescribed. Never take opioids in higher amounts or more often than prescribed. Do not combine opioids with alcohol or other drugs that cause drowsiness, such as benzodiazepines, also known as benzos, including diazepam and alprazolam, muscle relaxants or sleep aids. Never sell or share prescription opioids. This is illegal. Store opioids in a secure place and out of reach of others (including children, family, friends and visitors). The last page of this document has been signed and retained as a CHART COPY. Signatures Patient Education Materials Moderate Conscious Sedation, Adult, Care After Colon Polyps Colon Biopsy, Care After Medication Leaflets My discharge plan and instructions have been reviewed and explained to me and I,ALEX PENA understand my current condition and have read and understand these discharge instructions. I have received a written copy of the plan/instructions. If I have questions, I am aware that I should contact my doctor. 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 Family's history: negative. Health Status Allergies: Allergic Reactions (Selected) Severity Not Documented Latex- No reactions were documented. Triple Antibiotic Ointment 400 u-3.5 mg-5000 u/gm ointment- No reactions were documented., Allergies (2) ActiveReaction LatexNone Documented Triple Antibiotic Ointment 400None Documented u-3.5 mg-5000 u/gm Current medications: (Selected) Inpatient Medications Ordered LR 1,000 mL: 50 mL/hr, Intravenous Documented Medications Documented amLODIPine 5 mg oral tablet: 0 Refill(s) atenolol 25 mg oral tablet: 0 Refill(s) omeprazole 40 mg oral delayed release capsule: 0 Refill(s) tiZANidine 4 mg oral tablet: 0 Refill(s) triamcinolone 0.1% topical cream: 0 Refill(s), Medications (1) Active Scheduled: (0) Continuous: (1) Lactated Ringers 1,000 mL 1,000 mL, Intravenous, 50 mL/hr PRN: (0) Problem list: Active Problems (8) Acid reflux disease Arthritis of knee, right Disc disorder Heart abnormality Heart disease Hypertension Retinitis pigmentosa Vision defect, color Histories Past Medical History: No active or resolved past medical history items have been selected or recorded., HTN, CAD Family History: Diabetes mellitus type 2 Mother Stroke Mother Malignant tumor of prostate Father Procedure history: Colonoscopy ([id number]). Knee injury ([id number]). Cataract surgery of left eye ([id number]). Social History Social & Psychosocial Habits No Data Available . Physical Examination Vital Signs 09/01/2022 9:10 EST Temperature Temporal Artery 36.8 DegC Apical Heart Rate 66 bpm Respiratory Rate 13 br/min LOW Vital Signs(last 24 hrs) Last Charted Resp Rate L 13br/min (SEP 01 09:10) Measurements from flowsheet : Measurements 09/01/2022 9:10 EST Height 177.8 cm Admission Weight 90.0 kg Weight Method Stated [place] Body Weight 73.00 kg Admission Body Mass Index 28.47 m2 Pain assessment: Pain Assessment 09/01/2022 9:10 EST Primary Pain Intensity 0 Pain Scale Type 0-10 Pain scale . General: Alert and oriented. Airway: Normal temporomandibular joint mobility. Mallampati classification: II (soft palate, fauces, uvula visible). Head: Normocephalic. Dentition Evaluation: Intact. Neck: Supple. Respiratory: Lungs are clear to auscultation. Cardiovascular: Normal rate. Heart Sounds: Normal. Gastrointestinal: Soft. Musculoskeletal Normal range of motion. Integumentary: Intact. Neurologic: Alert. Review / Management Results review: No qualifying data available , Lab results 09/01/2022 9:58 EST SN - Proc - Anesthesia Type MAC SN - Proc - EBL 0 mL SN - Proc - Actual Procedure COLONOSCOPY 09/01/2022 9:57 EST SN - PP - Body Position Lateral Right Side-up Standard Intra-op 09/01/2022 9:57 EST SN - GCD - Post-operative Diagnosis SCREENING 09/01/2022 9:57 EST SN - GCD - Case Level OPD Level 3 09/01/2022 9:56 EST SN - CAt - Case Attendee SN - CAt - Case Attendee SN - CAt - Case Attendee SN - CAt - Case Attendee SN - CAt - Case Attendee SN - CAt - Case Attendee SN - CAt - Case Attendee SN - CAt - Case Attendee SN - CAt - Role Performed Primary Surgeon SN - CAt - Role Performed TRIMMING OPERATOR SN - CAt - Role Performed Gun Stock Checker 1 SN - CAt - Role Performed Federal Law Clerk 09/01/2022 9:36 EST Lactated Ringers Injection Begin Bag 1,000 mL mL 09/01/2022 9:10 EST Height 177.8 cm Admission Weight 90.0 kg Weight Method Stated [place] Body Weight 73.00 kg Admission Body Mass Index 28.47 m2 Temperature Temporal Artery 36.8 DegC Apical Heart Rate 66 bpm Respiratory Rate 13 br/min LOW Primary Pain Intensity 0 Pain Scale Type 0-10 Pain scale Heart Rhythm Regular Cardiac Rhythm Sinus rhythm Oxygen Therapy Room air Oxygen Saturation 94 % Abdomen Description Non-distended, Soft Swallowing Disorder None Bowel Sounds All Quadrants Present Urinary Elimination Voiding, no difficulties Status N/A Skin Temperature Warm Skin Description [place], Normal for ethnicity, Dry Skin Integrity Not intact Skin Moisture General Dry IV Present Present Continuous IV Infusions LR Hand Right 09/01/2022 22 gauge Peripheral IV Activity: Insert new site Peripheral IV Site Condition: No complications Peripheral IV Number of Attempts: 2 Extremity Movement Equal Characteristics of Speech Clear Level of Consciousness Alert Affect/Behavior Appropriate Orientation Oriented x 4 Sensory Deficits Blind, left eye, Blind, right eye Sleep Apnea Snore Yes Sleep Apnea Tired Yes Sleep Apnea Obstruction No Sleep Apnea Pressure Yes Sleep Apnea BMI No Sleep Apnea Age Yes Sleep Apnea Neck No Sleep Apnea Gender Yes Sleep Apnea Score 5 HI High Risk for Sleep Apnea Yes Diagnosed With Sleep Apnea No Advanced Directives No - requests information Infectious Disease Symptoms Patient states no symptoms Infectious Disease Recent Exposure No Alcohol and Drug Use No Employee of Institutional Living No Health Care 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 No History of Exposure to TB No History of Positive Chest X-Ray for TB No History of Positive TB Skin Test No Homeless No Known Immunosuppression No Recent Immigrant No Resident of Institutional Living No Bloody Sputum No Fatigue No Fever No Loss of Appetite No Night Sweats No Persistent Cough > 3 Weeks No Weight Loss No 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 Consent Form Signed Yes Patient Dressed In Hospital gown History & Physical Update On Chart Yes History & Physical On Chart Yes Bowel Prep Completed Yes Obstructive Sleep Apnea Assess Completed Yes Arrival Mode Ambulatory Position Supine Glasses Yes Dentures N/A Accompanied By On Arrival Family GI Prep Sutab GI Prep Completed Yes GI Prep Results Large amount Orientation Assessment Oriented x 4 Safety Brochure Information Reviewed Unable to complete Barriers to Learning Vision impairment Teaching Method Explanation Teaching Evaluation No further teaching needed Preferred Written Language North [place] Preferred Spoken Language [place] Information Given by Patient Patient's Current Physicians Patient's Current Physicians Belongings At Bedside Pants, Shirt, Shoes Discharge To, Anticipated Home with family care Activity Status ADL Ambulating in [place], Ambulating in room, Awake Assistive Device None NPO Status Maintained Prev Test Positive/Diagnosis w/COVID-19 No Current Quarantine/Isolated any Illness No Any Contact with Sick Animals/Birds No Traveled Anywhere in Last 30 Days No Allergy Band on and Verified Yes Patient ID Band on and Verified Yes Implants Verified Yes Pacemaker/AICD Verified Yes Last Fluid Intake 09/01/2022 6:30 Last Food Intake 08/31/2022 12:00 Last Void 09/01/2022 9:34 Lost Weight Unintentionally Recently No Eat Poorly Due to Decreased Appetite No Total MST Score 0 N/A Personal Devices, Patient Valuables Dentures, partial plate, Dentures, upper Anesthesia/Transfusions Prior anesthesia Admission Note-Nursing Same Day Patient History . Assessment and Plan [place] [employer] (ASA) physical status classification: Class III. Anesthetic Preoperative Plan Premedication: None. Anesthetic technique: MAC. Induction: intravenously. Postoperative pain management: Per surgeon. Risks discussed: nausea, vomiting, headache, sore throat, dental injury, hypotension, allergic reaction, serious complications. Informed consent: signed by patient. Digitally Signed by CHERYL ASTUDILLO on 09/01/2022 09:59 AM [facility] Clinical Note 09-01-2022 Note Date & Type Note Facility 09-01-2022 Note [facility] ADMISSION HISTORY AND PHYSICIAL CHIEF COMPLAINT: HISTORY OF PRESENT ILLNESS: REVIEW OF SYSTEMS: ACTIVE PROBLEMS: (8) Acid reflux disease (489321591) Arthritis of knee, right ([id number]) Disc disorder ([id number]) Heart abnormality (40923820) Heart disease (37645808) Hypertension ([id number]) Retinitis pigmentosa (74607201) Vision defect, color ([id number]) MEDICATIONS: Active Inpt Meds: None Active PRN Meds: None One Time Meds: None Active IV Meds: Lactated Ringers Infusion 1,000 mL (LR 1,000 mL) Start: 09/01/22 9:14:00 EST, Rate: 50 mL/hr, 09/01/22 9:14:00 EST ALLERGIES: (2) Latex Triple Antibiotic Ointment 400 FAMILY HISTORY: SOCIAL HISTORY: PHYSICAL EXAM: VITALS: [id number](kg ) 09/01 09:1036.8--[id number]/13 90.0 24 Hr Tmax: 36.8 at 09/01 09:10 36 Hr Tmax: 36.8 at 09/01 09:10 Vital Signs are the last 5 in the past 48 hours. Weights display the last 5 within 7 days. Initial Wt: 09/01 90.0 kg 198 lb Current Wt: 09/01 90.0 kg 198 lb GENERAL: HEENT: CARDIOVASCULAR: RESPIRATORY: ABDOMEN: EXREMETIES: NEUROLOGICAL: PSYCHIATRIC: LABS: No 36hr Lab Data DIAGNOSTICS: IMPRESSION: PLAN: History and Physical Update I have examined the patient; reviewed the H&P and there are no changes to the H&P unless noted below. Digitally Signed by ARUN RIZZO MD on 09/01/2022 09:58 AM [facility] course Narrative Note Date & Type Note Facility Hospital course Narrative No data available for this section [facility] Summary Purpose Family History No Family History Records Found Advance Directives No Advanced Directives Records Found Additional Source Comments Care Team (unrecognized sect ion and content) Care Team Personnel Name: JORGE MORENO MD Member Role: Primary Care Physician Address: Address: [address] [place] [address]- Care Team Related Persons Name: EMMA PENA Address: [address] [place] [address] (unrecognized sect ion and content) No Status Records Found INFORMATION SOURCE (unrecogn ized section and content) FOR RECORDS PERTAINING TO PATIENTS WHO ARE OR HAVE BEEN ENROLLED IN A CHEMICAL DEPENDENCY/SUBSTANCEABUSE PROGRAM, SOME INFORMATION MAY BE OMITTED. This clinical summary was aggregated from multiple sources. Caution should be exercised in using it in the provision of clinical care. This summary normalizes information from multiple sources, and as a consequence, information in this document may materially change the coding, format and clinical context of patient data. In addition, data may be omitted in some cases. CLINICAL DECISIONS SHOULD BE BASED ON THE PRIMARY CLINICAL RECORDS. [facility]. provides no warranty or guarantee of the accuracy or completeness of information in this document.
[2023-09-13 18:30] LABS: Anion Gap 6 (5-15); BUN 18 mg/dL (7-18); Calcium,Total 9.1 mg/dL (8.5-10.1); Chloride 108 mmol/L (98-107); Cholesterol 170 mg/dL (200); EST Glomerular Filtration Rate 79 mL/min (>60); Est Glom Filt Rate - Afr Amer 95 mL/min (>60); Glucose 160 mg/dL (74-106); High Density Lipoprotein 38 mg/dL; Potassium 3.8 mmol/L (3.5-5.1); Sodium Level 138 mmol/L (136-145); Triglycerides 104 mg/dL; Very Low Density Lipoprotein 21 mg/dL (5-40)
== END | disposition home or self-care (01) ==
PROVIDERS: PCP Family Medicine; Visit Provider Family Medicine
DX: I10 Essential (primary) hypertension (principal)
CPT/HCPCS: 36415; 80048; 80061

== ENCOUNTER 2023-11-23 04:15 | Emergency (ER) | payer MEDICARE, SELFPAY ==
[2023-11-23 04:17] VITALS: BP 184/96; PULSE 94; RESP 18; TEMP 38; O2SAT 95; BMI 31.4
--- NOTE | 2023-11-23 04:34 | EDS_ITS ---
HPI History of Present Illness Chief Complaint: Nausea/Vomiting Informant: patient and spouse/S.O. Narrative Narrative: Patient is a 68-year-old male with past medical history of hypertension and hyperlipidemia. He states that he went to bed feeling somewhat ill and then awoke around 1:30-2:00 in the morning with bouts of nausea and vomiting. He states that he then tried to eat a piece of toast to see if this would settle his stomach and he ended up having a bout of emesis after this as well. He states he then developed shaking chills and with the progression of symptoms comes to the hospital for evaluation. Patient does report he was around his granddaughter who was sick but that she had more of a cold. He reports a past medical history of appendectomy but otherwise denies any abdominal surgeries or history of intestinal disorder. He denies any loose or diarrhea associated with this and he denies any dark or discoloration to his emesis [facility] Medical History Abdominal aortic aneurysm without rupture Abdominal aortic ectasia Cardiomyopathy in diseases classified elsewhere Chest discomfort Essential hypertension Family history of stroke GERD (gastroesophageal reflux disease) Hyperlipidemia Hypertension Legally blind Retinitis pigmentosa Home Medications omeprazole 40 mg capsule,delayed release 40 mg PO QDAY 07/26/17 [History Last Taken 09/10/18] antiarthritic combination no.2 900 mg tablet (glucosamine-chondroitin) 900 mg PO DAILY 07/31/18 [History Last Taken Unknown] aspirin 81 mg tablet,delayed release (Adult Low Dose Aspirin) 81 mg PO DAILY 08/16/18 [History Last Taken 09/10/18] vitamin A palmitate 3,000 mcg (10,000 unit) tablet 40,000 unit PO QDAY 08/25/19 [History Last Taken Unknown] tizanidine 4 mg tablet 4 mg PO TID PRN 08/31/21 [History Last Taken Unknown] lutein 20 mg capsule 20 mg PO DAILY 06/19/23 [History Last Taken Unknown] atenolol 25 mg tablet 25 mg PO DAILY #90 tabs 08/08/23 [Rx Last Taken Unknown] amlodipine 5 mg tablet 5 mg PO BID #180 tabs 10/29/23 [Rx Last Taken Unknown] prochlorperazine maleate 10 mg tablet (Compazine) 10 mg PO TID PRN nausea and vomiting #21 tabs 11/23/23 [Rx Last Taken Unknown] Allergy/AdvReac Type Severity Reaction Status Date / Time clonidine Allergy Intermediate Hives Verified 11/23/23 04:17 latex Allergy Intermediate Hives Verified 11/23/23 04:17 neomycin Allergy Intermediate Hives Verified 11/23/23 04:17 [From Neosporin ([id number])] polymyxin B Allergy Intermediate Hives Verified 11/23/23 04:17 [From Neosporin ([id number])] carvedilol [From Coreg] AdvReac Severe Suicidal Verified 11/23/23 04:17 Ideation lisinopril AdvReac Severe dizziness,syncope,visual Verified 11/23/23 04:17 disturbance losartan AdvReac Severe Visual Verified 11/23/23 04:17 Disturbances metoprolol AdvReac Severe Other Verified 11/23/23 04:17 bacitracin AdvReac Intermediate hives Verified 11/23/23 04:17 barium iodide AdvReac Intermediate Vomiting Verified 11/23/23 04:17 hydrochlorothiazide AdvReac Unknown Verified 11/23/23 04:17 Family History Mother CAD (coronary artery disease) Heart disease CVA (cerebral vascular accident) Hypertension Father Hypertension Brother CVA (cerebral vascular accident) Sister Myocardial infarction CAD (coronary artery disease) Hypertension Daughter Diabetes Surgical History History of appendectomy Social History Smoking Status: Never smoker alcohol intake: never substance use type: does not use caffeine: Yes Type: coffee Number of servings: 1 ROS ROS ED Constitutional Constitutional ED: Reports chills, fever(s) and subjective ENT ENT ED: Denies rhinorrhea or sore throat Cardiovascular Cardiovascular: Denies chest pain Respiratory/Chest Respiratory/Chest: Denies cough or dyspnea Gastrointestinal Gastrointestinal: Reports nausea and vomiting; Denies abdominal pain or diarrhea Genitourinary Genitourinary ED: Denies dysuria or hematuria Musculoskeletal Musculoskeletal: Denies myalgias Integumentary Denies rash Neurologic Neurologic: Denies headache(s) Hematologic/Lymphatic Hematologic/Lymphatic: Denies easy bleeding or easy bruising EXAM Physical Exam Const Vital Signs: 11/23/23 04:17 11/23/23 04:39 11/23/23 05:50 Temperature 100.4 F H 100.1 F H Temperature Source Oral Oral Pulse Rate 94 90 Respiratory Rate 18 18 16 Blood Pressure 184/96 H 169/95 H 169/95 H Blood Pressure Mean 125 119 119 Pulse Ox 95 93 Oxygen Delivery Method Room Air Positive well nourished and well developed General Appearance ED: well developed; Negative for pallor HEENT Reports dry mucous membranes HEENT Narrative: Mucous membranes are dry and tacky No oral lesions no tongue or lip swelling no airway edema or compromise No secondary changes in the posterior pharynx to suggest infection Mouth ED: Yes dry mucous membranes Mouth: dry mucous membranes Eyes PERRL and EOMs intact bilaterally General Eye ED: Negative for scleral icterus Neck supple Neck Narrative: No nuchal rigidity or meningeal signs Resp normal respiratory effort and clear to auscultation bilaterally Cardio regular rate and regular rhythm Rate: other Other Details: Heart is regular rate and rhythm Radial and carotid pulses are equal and symmetric GI non-tender, non-distended and no masses GI Narrative: Abdomen soft nontender and nondistended with hyperactive bowel sounds. No voluntary guarding or rigidity or pulsatile mass. No fluid wave or increased tympany Auscultation: hyperactive bowel sounds Palpation: soft Extremity normal to inspection Extremity Narrative: No asymmetric edema no pitting edema negative Homans' sign bilaterally Neuro oriented x3, CN's II-XII intact bilaterally and no sensory deficits noted Sensorium / Orientation: alert Motor Exam: strength 5/5 throughout Psych Psych Narrative: Patient has a flat affect Skin no rashes or lesions noted and no wounds Skin Narrative: Skin turgor slightly increased without secondary changes to suggest infection General Skin Exam: Negative for jaundice or pallor MDM MDM MDM Narrative Medical decision making narrative: Patient arrived to the ER febrile and hypertensive but otherwise awake and alert with stable vitals. He reported nausea and vomiting without abdominal pain and subjective chills. Differential diagnosis is for viral infection such as Norw alk virus versus rotavirus versus COVID versus influenza. There is concern for biliary colic versus acute cholecystitis versus pancreatitis. There is also potential for diverticulitis/colitis. Secondary to this basic blood work was obtained but as the patient had no abdominal pain on palpation I felt no need for emergent imaging studies. Patient's white blood cell count is normal he has no signs of acute kidney injury and his electrolytes are within normal values as well. His lipase is not elevated going against pancreatitis and liver enzymes are normal going against acute cholecystitis/biliary colic. Patient was given Tylenol and his temperature improved he was treated with IV fluids and Zofran as well as Compazine and had improvement of his nausea. Also there is no further bouts of vomiting in the ER. Therefore at this time with improvement of symptoms a persistently soft nonsurgical abdomen that patient endorses no pain in an overall negative laboratory studies I do not feel there is need for CT scan or further workup and he can be discharged home with symptomatic care History & Record Review Discussion w/independent historian: Patient and Significant other Lab Data Attestation: I reviewed the patient's lab results. Labs: Laboratory Results - last 24 hr 11/23/23 04:30 WBC 9.2 RBC 4.95 Hgb 14.6 Hct 44.2 MCV 89.3 MCH 29.5 MCHC 33.0 RDW Std Deviation 41.1 RDW Coeff of Fidel 12.6 Plt Count 159 MPV 8.8 Immature Gran % (Auto) 0.200 Neut % (Auto) 86.3 H Lymph % (Auto) 5.5 L [place] % (Auto) 7.5 Eos % (Auto) 0.3 Baso % (Auto) 0.2 Absolute Neuts (auto) 7.9 H Absolute Lymphs (auto) 0.51 L Nucleated RBC % 0 Sodium 139 Potassium 4.1 Chloride 108 H Carbon Dioxide 25.0 Anion Gap 6 BUN 16 Creatinine 1.01 Estim Creat Clear Calc 81.62 Est GFR (MDRD) Af Amer 94 Est GFR (MDRD) Non-Af 78 BUN/Creatinine Ratio 15.8 Glucose 174 H Calcium 8.2 L Total Bilirubin 0.90 Direct Bilirubin 0.18 AST 24 ALT 24 Alkaline Phosphatase 83 Total Protein 7.1 Albumin 3.4 Globulin 3.7 Lipase 21 Discharge Plan Triage Chief Complaint: Nausea/Vomiting ED Provider: Prateek Carey Dx/Rx/DC Orders Clinical Impression: Pyrexia, Nausea & vomiting, Essential hypertension Instructions: ED Fever Control (Adult), ED Gastroenteritis, Viral (Adult) Prescriptions: New prochlorperazine maleate [Compazine] 10 mg tablet 10 mg PO TID PRN (Reason: nausea and vomiting) Qty: 21 0RF No Action antiarthritic combination no.2 900 mg tablet 900 mg tablet 900 mg PO DAILY tizanidine 4 mg tablet 4 mg PO TID PRN lutein 20 mg capsule 20 mg PO DAILY Rx Instructions: give with meal/snack amlodipine 5 mg tablet 5 mg PO BID Qty: 180 3RF omeprazole 40 mg capsule,delayed release(DR/EC) 40 mg PO QDAY aspirin [Adult Low Dose Aspirin] 81 mg tablet,delayed release (DR/EC) 81 mg PO DAILY vitamin A palmitate 10,000 unit tablet 40,000 unit PO QDAY atenolol 25 mg tablet 25 mg PO DAILY Qty: 90 3RF Primary Care Provider: Tiff Garrett Referrals: Tiff Garrett MD [Primary Care Provider] - Activity Restrictions/Additional Instructions: Your history and exam and workup is most consistent with a viral stomach infection. This will last anywhere from 24 hours to 7 days with the average being 3 days. Please continue with Tylenol and/or Motrin as needed for fever control and use the prescribed medication for nausea/vomiting control. If you have any further concerns or worsening symptoms please return to the ER for repeat evaluation Disposition Disposition: Home, Self Care
[2023-11-23] MEDS: 0.9% Normal Saline (1000mL) 1,000 ML 999 ML IV (04:38)
[2023-11-23] MEDS: Ondansetron 4 MG/2 ML Vial IV (04:38)
[2023-11-23 04:39] VITALS: BP 169/95; PULSE 90; RESP 18; O2SAT 93
[2023-11-23] MEDS: Acetaminophen 500 MG Tablet 1000 MG PO (04:43)
[2023-11-23 04:46] LABS: Absolute Lymphocyte Count 0.51 X10^3/uL (0.83-4.51); Absolute Neutrophil Count 7.9 X10^3/uL (2.0-7.7); Basophil# 0.02 X10^3/uL; Basophil% 0.2 % (0-1); Eosinophil# 0.03 X10^3/uL; Eosinophils% 0.3 % (0-5); Hematocrit 44.2 % (40-54); Hemoglobin 14.6 g/dL (13.0-16.5); Lymphocyte # 0.51 X10^3/ul (0.83-4.51); Lymphocyte % 5.5 % (19-41); Mean Corpuscular Hgb 29.5 pg (27.0-32.0); Mean Corpuscular Volume 89.3 fL (80-94); Mean Platelet Vol. 8.8 fl (6.2-12.0); Monocyte# 0.69 X10^3/uL; Monocyte% 7.5 % (0-10); NRBC Flagged by Analyzer 0 % (0-5); Neutrophil # 7.94 X10^3/uL (2.7-7.7); Neutrophil % 86.3 % (47-70); POSITIVE DIFFERENTIAL YES; Platelet Count 159 K/mm3 (150-450); RBC Distribution Width CV 12.6 % (11.6-14.6); RBC Distribution Width SD 41.1 fl (35.1-43.9); Red Blood Count 4.95 M/mm3 (4.6-6.2); White Blood Count 9.2 K/mm3 (4.4-11.0)
[2023-11-23 05:20] LABS: AST(SGOT) 24 U/L (15-37); Alanine Aminotransfer ALT/SGPT 24 U/L (16-61); Albumin, Serum 3.4 g/dL (3.2-5.0); Alkaline Phosphatase 83 U/L (45-117); Anion Gap 6 (5-15); BUN 16 mg/dL (7-18); BUN/Creat Ratio 15.8 RATIO (10-20); Bilirubin, Direct 0.18 mg/dL (0.00-0.30); Calcium,Total 8.2 mg/dL (8.5-10.1); Chloride 108 mmol/L (98-107); Creatinine, Serum 1.01 mg/dL (0.70-1.30); EST Glomerular Filtration Rate 78 mL/min (>60); Est Glom Filt Rate - Afr Amer 94 mL/min (>60); Estimated Creatinine Clearance 81.62 ml/min; Globulin 3.7 g/dL (2.2-4.2); Glucose 174 mg/dL (74-106); Lipase 21 U/L (13-75); Potassium 4.1 mmol/L (3.5-5.1); Protein, Total 7.1 g/dL (6.4-8.2); Sodium Level 139 mmol/L (136-145)
[2023-11-23] MEDS: proCHLORPERazine 10 MG/2 ML Vial 5 MG IV (05:47)
[2023-11-23 05:50] VITALS: BP 169/95; RESP 16; TEMP 37.8
[2023-11-23 06:25] VITALS: BP 152/89; PULSE 65; RESP 18; TEMP 37.4; O2SAT 97
== END 2023-11-23 06:27 | disposition home or self-care (01) ==
PROVIDERS: Emergency Provider Emergency Medicine; PCP Family Medicine; Visit Provider Emergency Medicine
DX: R50.9 Fever, unspecified (principal); E78.5 Hyperlipidemia, unspecified; I10 Essential (primary) hypertension; R11.2 Nausea with vomiting, unspecified; K21.9 Gastro-esophageal reflux disease without esophagitis; Z90.49 Acquired absence of other specified parts of digestive tract; H54.8 Legal blindness, as defined in USA; Z82.3 Family history of stroke
CPT/HCPCS: 80048; 80076; 83690; 85025; 87631; 96361; 96374; 96375; 99282; J7030; A4216; J2405

== ENCOUNTER → 2024-02-20 | Outpatient (CLI) | payer MEDICARE, SELFPAY ==
--- NOTE | 2024-02-20 09:02 | US_ITS ---
PROCEDURES: ULTRASOUND AORTA REASON FOR EXAM: Male, 69 years old. Known AAA, reassess TECHNIQUE: Ultrasound evaluation of the aorta was performed with real-time and static santoro-scale imaging. COMPARISON: 09/19/2018 FINDINGS: There is atherosclerotic plaque formation of the abdominal aorta. Aorta measures: Proximal obscured. Middle 2.2 cm. Distal 3.7 cm. Aorta measure transversely: Proximal obscured . Middle 2.3 cm. Distal 4.9 cm. Right iliac artery measures: 1.3 cm. Right iliac artery measure transversely: 1.3 cm. Left iliac artery measures: 1.1 cm. Left iliac artery measure transversely: 1.1 cm. The previously noted infrarenal abdominal aortic aneurysm has increased in size since the previous study, the previous study measured 2.8 x 3.0 cm, on current study measures 3.9 x 4.9 cm in greatest orthogonal dimension, it is 8.9 cm in length. US/US ABD AORTA SCREEN/AAA IMPRESSION: Peripherally calcified fusiform infrarenal abdominal aortic aneurysm has increased in size since the previous study. No evidence of dissection or suspicious retroperitoneal fluid Electronically Signed: James Love MD at 11:00 EDT ,
== END | disposition home or self-care (01) ==
LOC: US 09:01
PROVIDERS: PCP Family Medicine; Referring Provider Nurse Practitioner Family; Visit Provider Nurse Practitioner Family
DX: I10 Essential (primary) hypertension (principal); I43 Cardiomyopathy in diseases classified elsewhere; I71.40 Abdominal aortic aneurysm, without rupture, unspecified; E78.5 Hyperlipidemia, unspecified
CPT/HCPCS: 76706

== ENCOUNTER → 2024-04-14 | Outpatient (CLI) | payer MEDICARE, SELFPAY ==
[2024-04-14 18:48] LABS: PSA,Total - Annual Screen 3.87 ng/mL (0.00-4.00)
== END | disposition home or self-care (01) ==
LOC: MTLAB 15:07
PROVIDERS: PCP Family Medicine; Referring Provider Family Medicine; Visit Provider Family Medicine
DX: Z12.5 Encounter for screening for malignant neoplasm of prostate (principal)
CPT/HCPCS: 36415; 84153; G0103

== ENCOUNTER → 2024-12-09 | Outpatient (CLI) | payer MEDICARE, SELFPAY ==
--- NOTE | 2024-12-09 07:00 | ECHOCS_ITS ---
Reason For Study Reason For Study: Chest Pain Procedure This was a 2D Doppler, Color Flow transthoracic echocardiogram. Contrast injection was performed. Exam performed in department. Left Ventricle Normal LV size. Left ventricular systolic function is normal. The left ventricular ejection fraction is 55 %. No regional wall motion abnormalities noted. Right Ventricle Normal RV size. Normal systolic function. Atria Normal left atrium. Normal right atrium. Mitral Valve Normal mitral valve. Mild (1+) mitral valve insufficiency. Tricuspid Valve Normal tricuspid valve. Aortic Valve Trisinus/trileaflet aortic valve. Mild focal aortic valve calcification. Pulmonic Valve The pulmonic valve is not well visualized. Great Vessels Normal aortic root. The pulmonary artery is normal size. Inferior vena cava collapse with respiration. Pericardium/Pleural No pericardial effusion. Medication Diluted definity 1.5ml given slow IV push to enhance endocardial definition. MMode/2D Measurements & Calculations LVIDd: 4.7 cm IVSd: 0.98 cm Ao root diam: 3.5 cm LVIDs: 2.5 cm LVPWd: 1.0 cm RVDd: 4.0 cm FS: 47.5 % LAV(MOD-bp): 52.3 ml LVAd ap4: 28.7 cm2 SV(MOD-sp4): 57.4 ml LAV(MOD-bp) Indexed: 24.4 ml/m2 LVLd ap4: 7.3 cm SI(MOD-sp4): 26.8 ml/m2 LAV(MOD-sp2): 54.8 ml EDV(MOD-sp4): 93.6 ml LAV(MOD-sp4): 48.2 ml EDV(sp4-el): 95.9 ml LVAs ap4: 16.4 cm2 LVLs ap4: 6.2 cm ESV(MOD-sp4): 36.2 ml ESV(sp4-el): 37.2 ml EF(MOD-sp4): 61.3 % EF(sp4-el): 61.2 % SV(sp4-el): 58.7 ml LA A4 area: 18.2 cm2 LA dimension(2D): 3.9 cm RA A4 area: 10.7 cm2 TAPSE: 2.0 cm Doppler Measurements & Calculations MV E max taz: 82.3 cm/sec Lat Peak E' Taz: 12.4 cm/sec Med Peak E' Taz: 8.8 cm/sec E/E' lat: 6.7 E/E' med: 9.3 Ao V2 max: 105.4 cm/sec LV V1 max: 64.9 cm/sec PA V2 max: 94.7 cm/sec Ao max P.5 mmHg LV V1 max P.7 mmHg Ao V2 mean: 79.6 cm/sec Ao mean P.8 mmHg Ao V2 VTI: 20.7 cm TR max taz: 225.4 cm/sec TR max P.3 mmHg ECHO/Echo Complete W/ Contrast Interpretation Summary Normal LV size. Left ventricular systolic function is normal. The left ventricular ejection fraction is 55 %. Contrast injection was performed. Ordering Physician: Logan Burgos Referring Physician: Eamon Choudhary Performed By: Fanny Spence RDCS, RVT
--- NOTE | 2024-12-09 18:01 | STRESSREP ---
Stress Test Report Pharmacologic myocardial perfusion stress test. 69-year-old man with a history of chest pain Resting EKG demonstrates atrial fibrillation with a right bundle branch block with a rate of 77 bpm. Resting blood pressure is 148/102 mmHg. 0.4 mg of regadenoson was infused per usual protocol followed by rapid intravenous saline flush injection. Continuous EKG monitoring was performed. The maximum heart rate was 112 bpm which was 74% of max impacted heart rate the maximum workload was 1 metabolic equivalent. At rest there were no ST or T wave changes noted to suggest ischemia and at peak infusion nonspecific ST changes were noted which did not meet the criteria for ischemia. No clinical angina is noted. The final blood pressure was 148/102 mmHg. Myocardial perfusion protocol. 13.9 mCi of technetium 99m sestamibi was injected at rest. 0.4 mg of regadenoson was infused per usual protocol. At peak infusion 42.6 mCi of technetium 99m sestamibi was injected stress images were obtained stress and rest images were reconstructed and compared in the short axis vertical long and horizontal long axis. Gated images were also obtained. Perfusion SPECT analysis: Review of the stress images demonstrate normal uptake of tracer noted in all areas of the myocardium. The resting images similar demonstrated normal uptake of tracer noted in all areas of the myocardium. No areas of reversibility are noted to suggest ischemia and no previous infarct is noted. Gated SPECT analysis: The gated ejection fraction is 62%. Conclusion: Normal pharmacologic myocardial perfusion stress test. Preserved ejection fraction.
== END | disposition home or self-care (01) ==
LOC: CVS 06:58
PROVIDERS: PCP Family Medicine; Referring Provider Student in an Organized Health Care Education/Training Program; Visit Provider Student in an Organized Health Care Education/Training Program
DX: Z01.810 Encounter for preprocedural cardiovascular examination (principal); I43 Cardiomyopathy in diseases classified elsewhere; R07.9 Chest pain, unspecified; I71.40 Abdominal aortic aneurysm, without rupture, unspecified
CPT/HCPCS: 78452; 93017; 93306; A9500; Q9957; A4216; C8929; J2785

== ENCOUNTER 2024-12-18 06:55 | Emergency (ER) | payer MEDICARE, SELFPAY ==
[2024-12-18 06:56] VITALS: BP 123/61; PULSE 99; RESP 16; TEMP 36.9; O2SAT 96; BMI 28.9
--- NOTE | 2024-12-18 07:14 | EX.ED.DYSGE1 ---
HPI History of Present Illness Chief Complaint: Wound Check Narrative Narrative: 69-year-old male past medical history of atrial fibrillation had surgery for aortic realignment at an outside facility on Sunday, approximately 3 days ago. He started Eliquis last evening. He had an arterial line and a peripheral IV in his left forearm/wrist. He had a small amount of bruising that he noticed yesterday evening, when he awoke this morning the ecchymosis was much larger. He denies any other bleeding diathesis. He has 2 surgical wounds in his groin that are small they are not bleeding. He denies any black stool, no nausea or vomiting. He presents with his for wound check to make sure that he is not bleeding profusely under the skin and because the ecchymosis is larger. Patient denies any other bleeding diathesis. [facility] Medical History Abdominal aortic aneurysm without rupture Abdominal aortic ectasia Essential hypertension Family history of stroke Cardiomyopathy in diseases classified elsewhere Chest discomfort Hyperlipidemia Retinitis pigmentosa Legally blind Hypertension GERD (gastroesophageal reflux disease) Home Medications ?Medication ?Instructions ?Recorded ?Last Taken ?Type omeprazole 40 mg capsule,delayed 40 mg PO QDAY 07/26/17 09/10/18 History release antiarthritic combination no.2 900 900 mg PO DAILY 07/31/18 Unknown History mg tablet (glucosamine-chondroitin) aspirin 81 mg tablet,delayed 81 mg PO DAILY 08/16/18 09/10/18 History release (Adult Low Dose Aspirin) vitamin A palmitate 3,000 mcg 40,000 unit PO QDAY 08/25/19 Unknown History (10,000 unit) tablet tizanidine 4 mg tablet 4 mg PO TID PRN muscle spasticity 08/31/21 Unknown History lutein 20 mg capsule 20 mg PO DAILY 06/19/23 Unknown History atenolol 25 mg tablet 25 mg PO DAILY #90 tabs 07/11/24 Unknown Rx amlodipine 5 mg tablet 5 mg PO BID #180 tabs 10/09/24 Unknown Rx apixaban 5 mg tablet (Eliquis) 5 mg PO BID #60 tabs 12/16/24 Unknown Rx Allergy/AdvReac Type Severity Reaction Status Date / Time clonidine Allergy Intermediate Hives Verified 12/05/24 11:35 latex Allergy Intermediate Hives Verified 12/05/24 11:35 neomycin (From Neosporin Allergy Intermediate Hives Verified 12/05/24 11:35 ([id number])) polymyxin B (From Neosporin Allergy Intermediate Hives Verified 12/05/24 11:35 ([id number])) carvedilol (From Coreg) AdvReac Severe Suicidal Verified 12/05/24 11:35 Ideation lisinopril AdvReac Severe dizziness,syncope,visual Verified 12/05/24 11:35 disturbance losartan AdvReac Severe Visual Verified 12/05/24 11:35 Disturbances metoprolol AdvReac Severe Other Verified 12/05/24 11:35 bacitracin AdvReac Intermediate hives Verified 12/05/24 11:35 barium iodide AdvReac Intermediate Vomiting Verified 12/05/24 11:35 hydrochlorothiazide AdvReac Unknown Verified 12/05/24 11:35 Family History Mother CAD (coronary artery disease) Heart disease CVA (cerebral vascular accident) Hypertension Father Hypertension Brother CVA (cerebral vascular accident) Sister Myocardial infarction CAD (coronary artery disease) Hypertension Daughter Diabetes Surgical History History of appendectomy Social History Smoking Status: Never smoker alcohol intake: never substance use type: does not use caffeine: Yes Type: coffee Number of servings: 1 ROS ROS ED ROS Narrative Review of systems positive for ecchymosis on the left volar forearm where IVs were placed/arterial line. Denies other bleeding sites, no black stool, no hematemesis. No other symptoms. No exacerbating or alleviating factors. EXAM Physical Exam Narrative Exam Narrative: Afebrile. Vital signs noted. Nontoxic-appearing. Cardiovascular examination regular rate and rhythm. Lungs clear to auscultation bilaterally. Focused examination on the left forearm reveals palpable radial pulse. He appears neurovascularly intact distally with good capillary refill of fingertips. Able to oppose thumb on left. There is a moderately sized ecchymosis on the volar aspect of his left forearm. No bleeding from venipuncture site or radial artery site. Inspection of the incision sites in the bilateral inguinal areas show no active bleeding. No erythema. Const Vital Signs: 12/18/24 06:56 Temperature 98.4 F Temperature Source Oral Pulse Rate 99 Respiratory Rate 16 Blood Pressure 123/61 H Blood Pressure Mean 81 Pulse Ox 96 MDM MDM MDM Narrative Medical decision making narrative: As the patient had prior bleeding/ecchymosis that he noticed that has gotten larger this morning, I do feel that this is more subcutaneous tissue ecchymosis from the venipuncture/arterial line site. He just started his blood thinner. The differential diagnosis does include bleeding from the sites subcutaneously versus superficial thrombophlebitis. In the event that it is thrombophlebitis, he has already started a blood thinner in the form of Eliquis. At this point in time, his medical screening exam is negative. He and his were reassured. They are motivated for discharge. He can follow-up with his surgeon as an outpatient. Return instructions to the emergency department were reviewed. Disposition is discharged home in stable condition. History & Record Review Discussion w/independent historian: Patient and Family () Discharge Plan Triage Chief Complaint: Wound Check ED Provider: Yasmani Boudreaux Dx/Rx/DC Orders Clinical Impression: Ecchymosis of forearm, Bleeding from venipuncture site Instructions: ED Wound Check (No Infection) Prescriptions: No Action glucosamine-chondroitin 900 mg tablet 900 mg PO DAILY tizanidine 4 mg tablet 4 mg PO TID PRN (Reason: muscle spasticity) lutein 20 mg capsule 20 mg PO DAILY Rx Instructions: give with meal/snack omeprazole 40 mg capsule,delayed release(DR/EC) 40 mg PO QDAY aspirin [Adult Low Dose Aspirin] 81 mg tablet,delayed release (DR/EC) 81 mg PO DAILY vitamin A palmitate 10,000 unit tablet 40,000 unit PO QDAY atenolol 25 mg tablet 25 mg PO DAILY Qty: 90 3RF amlodipine 5 mg tablet 5 mg PO BID Qty: 180 3RF Eliquis 5 mg tablet 5 mg PO BID Qty: 60 3RF Primary Care Provider: Eamon Choudhary Referrals: Eamon Choudhary MD [Primary Care Provider] - 1 Week if not improving Activity Restrictions/Additional Instructions: You are having minor bleeding under the skin from the site of your venipuncture and arterial line. Return with increased ecchymosis, increased pain, new or worsening symptoms. Print Language: Azeri Disposition Disposition: Home, Self Care Discharge Date/Time: 12/18/24 07:19
== END 2024-12-18 07:19 | disposition home or self-care (01) ==
LOC: ED 07:16
PROVIDERS: Emergency Provider Emergency Medicine; PCP Family Medicine; Visit Provider Emergency Medicine
DX: L76.32 Postprocedural hematoma of skin and subcutaneous tissue following other procedure (principal); I48.91 Unspecified atrial fibrillation; I10 Essential (primary) hypertension; E78.5 Hyperlipidemia, unspecified; K21.9 Gastro-esophageal reflux disease without esophagitis; Z79.899 Other long term (current) drug therapy; Z90.49 Acquired absence of other specified parts of digestive tract
CPT/HCPCS: 99282

== ENCOUNTER → 2025-02-10 | Outpatient (CLI) | payer MEDICARE, SELFPAY | END | disposition home or self-care (01) | LOC: PSN 13:57 | PROVIDERS: PCP Family Medicine; Referring Provider Student in an Organized Health Care Education/Training Program; Visit Provider Student in an Organized Health Care Education/Training Program | DX: I48.91 Unspecified atrial fibrillation (principal) | CPT/HCPCS: 93225; 93226 ==

== ENCOUNTER → 2025-02-18 | Outpatient (CLI) | payer MEDICARE, SELFPAY ==
--- NOTE | 2025-02-18 11:04 | RAD_ITS ---
PROCEDURE: CHEST PA AND LATERAL 02/18/2025 REASON FOR EXAM: PREPROCEDURE EVALUATION, CARDIOVERSION TECHNIQUE: CHEST PA AND LATERAL COMPARISON: 08/22/2018 FINDINGS: Mild pulmonary vascular congestion. No focal consolidation. No pleural effusion or pneumothorax. Cardiac silhouette is within normal limits. Calcified aortic arch. No acute fractures. RAD/Chest PA and Lateral IMPRESSION: No focal consolidations. Reading Location: [id number]
--- NOTE | 2025-02-18 11:04 | RAD_ITS ---
PROCEDURE: CHEST PA AND LATERAL 02/18/2025 REASON FOR EXAM: PREPROCEDURE EVALUATION, CARDIOVERSION TECHNIQUE: CHEST PA AND LATERAL COMPARISON: 08/22/2018 FINDINGS: Mild pulmonary vascular congestion. No focal consolidation. No pleural effusion or pneumothorax. Cardiac silhouette is within normal limits. Calcified aortic arch. No acute fractures. RAD/Chest PA and Lateral IMPRESSION: No focal consolidations. Reading Location: [id number]
[2025-02-18 11:20] LABS: Prothrombin Time (Protime)PT. 15.2 SECONDS (11.7-14.9)
[2025-02-18 11:43] LABS: Anion Gap 10 (5-15); BUN 14 mg/dL (4-19); BUN/Creat Ratio 14.8 RATIO (10-20); Calcium,Total 9.2 mg/dL (7.6-11.0); Carbon Dioxide 25.2 mmol/L (21.0-32.0); Chloride 103 mmol/L (98-108); Glucose 121 mg/dL (70-99); Potassium 4.4 mmol/L (3.3-5.1)
== END | disposition home or self-care (01) ==
LOC: LAB 10:51
PROVIDERS: PCP Family Medicine; Referring Provider Student in an Organized Health Care Education/Training Program; Visit Provider Student in an Organized Health Care Education/Training Program
DX: I48.91 Unspecified atrial fibrillation (principal)
CPT/HCPCS: 36415; 71046; 80048; 85610

== ENCOUNTER 2025-02-25 10:39 | Day surgery (SDC) | payer MEDICARE, SELFPAY ==
[2025-02-24 08:15] VITALS: BMI 29.7
--- NOTE | 2025-02-25 12:50 | CARDIOVERS ---
Cardioversion Cardioversion: Patient was brought to the post-cath recovery area in the fasting state. The patient had been evaluated back in November 2024 and found to be in atrial fibrillation. His rate has been controlled with beta-mikey therapy has been on uninterrupted Eliquis for over 6 weeks. ECG today showed atrial fibrillation with a controlled ventricular rate and right bundle branch block. This was unchanged from his ECG 02/18/2025. After appropriate evaluation the patient received 40 mg of IV propofol by Dr. Macario Baez and after appropriate anesthesia was obtained a single 200 J synchronized shock was delivered with anterior posterior pads. This resulted in conversion to normal sinus rhythm. The patient recovered with no neurologic deficits and hemodynamically stable. The patient will be discharged home he has a follow-up appointment to have an ECG done in 1 week at the [facility] office. The patient will continue his current medical therapy. Procedures Coronary Therapeutic CF Procedures [id number]: [id number] Cardioversion electric ext
--- NOTE | 2025-02-25 13:08 | PRO.PCM_ITS ---
Procedures Pulmonary Pulmonary Procedures /Diagnostic Testin Con Sedation Non-invasive Procedural Procedure Information Date of Procedure: 02/25/25 Description of procedure: CONSCIOUS SEDATION REPORT DATE OF SERVICE: February 25, 2025 BRIEF HISTORY OF PRESENT ILLNESS: The patient is a 70-year-old male who presented to [facility] to undergo an elective outpatient cardioversion due to underlying atrial fibrillation. The patient denied any prior anesthetic complications. He is systemically anticoagulated on Eliquis. His last surface echocardiogram demonstrated an ejection fraction of approximately 55%. PHYSICAL EXAMINATION: VITAL SIGNS: Reviewed and were acceptable. GENERAL: The patient is a male, in no apparent distress, speaking in full sentences. HEENT: Normocephalic, atraumatic. Mucous membranes are moist and pink. Good mouth opening noted. Trachea is midline. CHEST: S1, S2 irregularly irregular. No murmurs, rubs or gallops were noted. LUNGS: Clear to auscultation bilaterally without appreciable wheezes, rales or rhonchi. ABDOMEN: Soft, nontender, nondistended. Positive bowel sounds. EXTREMITIES: There is no clubbing, cyanosis or edema. ASA Class: II DESCRIPTION OF PROCEDURE: After confirmation of informed consent, the patient's anesthesia plan was reviewed in detail. Propofol was chosen. Risks and benefits were reviewed and the patient agreed to proceed. At 1237, the patient was given 40 mg of propofol. The patient achieved an appropriate level of sedation and was given a 200 joule synchronized cardioversion by Dr. Mcghee at the bedside. This was successful in achieving normal sinus rhythm. The patient was monitored until 1252, at which time he reached his baseline mental status and function. The patient tolerated the procedure well. COMPLICATIONS: None ESTIMATED BLOOD LOSS: None RECOMMENDATIONS: Okay to recover in usual fashion.
== END 2025-02-25 13:35 | disposition home or self-care (01) ==
PROVIDERS: PCP Family Medicine; Referring Provider Internal Medicine Cardiovascular Disease; Visit Provider Internal Medicine Cardiovascular Disease
DX: I48.91 Unspecified atrial fibrillation (principal); Z79.01 Long term (current) use of anticoagulants; I10 Essential (primary) hypertension; E78.5 Hyperlipidemia, unspecified; Z82.49 Family history of ischemic heart disease and other diseases of the circulatory system; R51.9 Headache, unspecified; R53.83 Other fatigue; I71.40 Abdominal aortic aneurysm, without rupture, unspecified
CPT/HCPCS: 92960; 93005

== ENCOUNTER → 2025-03-19 | Outpatient (CLI) | payer MEDICARE, SELFPAY ==
[2025-03-19 18:36] LABS: AST(SGOT) 22 U/L (<=37); Alanine Aminotransfer ALT/SGPT 21 U/L (<=46); Albumin, Serum 4.2 g/dL (3.4-4.8); Alkaline Phosphatase 90 U/L (40-129); Bilirubin, Direct 0.11 mg/dL (0.00-0.30); Globulin 3.1 g/dL (2.2-4.2)
== END | disposition home or self-care (01) ==
PROVIDERS: PCP Family Medicine; Referring Provider Family Medicine; Visit Provider Family Medicine
DX: B35.1 Tinea unguium (principal)
CPT/HCPCS: 36415; 80076

== ENCOUNTER → 2025-04-14 | Outpatient (CLI) | payer MEDICARE, SELFPAY ==
--- NOTE | 2025-04-14 15:59 | RAD_ITS ---
PROCEDURE: CERV SPINE 4 OR 5 VIEWS 04/14/2025 REASON FOR EXAM: HX OF CHRONIC NECK PAIN, HEADACHES. TECHNIQUE: CERV SPINE 4 OR 5 VIEWS COMPARISON: None. FINDINGS: There is loss of the normal cervical lordosis. There are no compression fractures. There is degenerative disc disease C5-6, C6-7 and C7-T1 with narrowing of the intervertebral disc spaces and marginal osteophytes. There is multilevel facet arthropathy without spondylolisthesis. There is calcific vascular disease of the right carotid bifurcation. RAD/Cerv Spine 4 or 5 Views IMPRESSION: 1. Multilevel degenerative disc disease with cervical spasm. 2. Calcific vascular disease of the right carotid bifurcation. Reading Location: [id number]
[2025-04-14 18:25] LABS: Anion Gap 10 (5-15); BUN 21 mg/dL (4-19); BUN/Creat Ratio 20.6 RATIO (10-20); Calcium,Total 9.3 mg/dL (7.6-11.0); Carbon Dioxide 25.7 mmol/L (21.0-32.0); Chloride 104 mmol/L (98-108); Glucose 113 mg/dL (70-99); PSA,Total - Annual Screen 2.54 ng/mL (0.02-4.00); Potassium 4.5 mmol/L (3.3-5.1)
== END | disposition home or self-care (01) ==
LOC: MTLAB 15:59
PROVIDERS: PCP Family Medicine; Referring Provider Family Medicine; Visit Provider Family Medicine
DX: M50.30 Other cervical disc degeneration, unspecified cervical region (principal); I10 Essential (primary) hypertension; Z12.5 Encounter for screening for malignant neoplasm of prostate
CPT/HCPCS: 36415; 72050; 80048; 84153; G0103

== ENCOUNTER 2025-06-09 14:40 | Outpatient (RCR) | payer MEDICARE, SELFPAY ==
--- NOTE | 2025-06-09 15:39 | HP.PTEVAL ---
Patient's Visit Information Visit Information Visit Information: SHASHA PENA is a 70 year old M referred to Physical Therapy by Dr. Josh Solis MD with a diagnosis of neck pain. Date of Evaluation: 06/09/25 Physical Therapist: Boris Corral, DPT, OCS, CSCS Visit Plan Plan: Pt shown appropriate posture adn pulling BTB exercise 2x15 to go along with current ex regimen of neck ROM, neck strethcing being done daily and db ext for shoulders. He will continue these. No further skilled PT neeeded. Subjective Subjective: H/o neeck pain for long time. Discs in neck are deteriorating. Dr. Linares has him doing 5 exercises everey day and muscle relaxeers and then he is fine. HEP is UT stretch rotations, neck circles, nck up and down. Musclee relaxer helps him with neck pain and relieves RAO. Dr. Solis had x rays of neck in order to get muscle relaxers whcih showed DDD. neck pain is now occasional if managed propeerly 2/10 at worst. Sleep is fine. Activites are normal. No negative side effets to muscle relaxers . Not employeed, doesn't see well. Spends day : does exercises, walks, watch TV. Pain Neck pain: Pain Intensity (Out of 10): 0 Pain Intensity Range: 0 and 2 Comment: infrquently. Objective Objective: Walks back to PT I with good balance but poor eyesight needing guidance. Heel raiss and toe raises I. Posture is forward head but no pain. cervical AROM ext 73 degrees, 72 B rotation, full sB, some contralateral tightness but no pain or limitations. UE AROM WFL and strength at 4/5 without myotomal abnormalities. reflxes 2/3 bi and tri B Sensation UE WNl tog ross light touch. - c/s compression. some minor tenderness to touch in uppr cervical B. Rehabilitation Potential Physical Therapy Diagnosis: Doing wll managing neck pain Anticipated Interventions Text: Thank you for the opportunity to evaluate your patient. For Medicare and Medicare HMO plans, please review the plan of care and approve it. It will need to be FAXED BACK to us at [phone] for Medicare purposes. For Medicare only, by signing this I certify the plan of care. Please let me know if there are questions or concerns regarding this plan of care. Physician Signature: Date:
== END 2025-06-09 19:00 | disposition home or self-care (01) ==
LOC: PT 14:40
PROVIDERS: PCP Family Medicine; Referring Provider Family Medicine; Visit Provider Family Medicine
DX: M54.2 Cervicalgia (principal)
CPT/HCPCS: 97161